=== PATIENT | female | born 1955 | race Caucasian/White ===

== ENCOUNTER → 2022-11-13 08:58 | Outpatient (BNVA) | payer MEDICARE, SELFPAY | PROVIDERS: Visit Provider Nurse Practitioner | DX: R39.9 Unspecified symptoms and signs involving the genitourinary system (principal); N39.0 Urinary tract infection, site not specified | CPT/HCPCS: 81000; 87086 ==

== ENCOUNTER → 2023-07-23 07:13 | Outpatient (BNVA) | payer MEDICARE, SELFPAY | PROVIDERS: Visit Provider Nurse Practitioner Family | DX: R30.0 Dysuria (principal); R10.30 Lower abdominal pain, unspecified | CPT/HCPCS: 81000 ==

== ENCOUNTER → 2024-12-14 09:45 | Outpatient (BNVA) | payer MEDICARE, OTHER, SELFPAY | PROVIDERS: Visit Provider Family Medicine | DX: E55.9 Vitamin D deficiency, unspecified (principal); I10 Essential (primary) hypertension; E78.2 Mixed hyperlipidemia; R10.31 Right lower quadrant pain; R79.89 Other specified abnormal findings of blood chemistry | CPT/HCPCS: 80053; 80061; 82306; 82607; 84443; 85025 ==

== ENCOUNTER 2025-01-31 11:36 | Outpatient (CLI) | payer MEDICARE, OTHER, SELFPAY ==
--- NOTE | 2025-01-31 11:40 | MM_ITS ---
WS: [id number] BILATERAL 3D TOMOSYNTHESIS DIGITAL SCREENING MAMMOGRAPHY WITH CAD CLINICAL INFORMATION: Z12.31 - Encounter for screening mammogram for malignant ... HISTORY: Screening mammogram. No current complaints. COMPARISON: 2023 TECHNIQUE: Bilateral CC and MLO views. FINDINGS: The breasts are composed of heterogeneous fibroglandular density tissue, which can limit the detection of small underlying mass lesions. No suspicious mass, asymmetry, calcifications, or architectural distortion. No evidence of malignancy. Punctate lucent centered calcifications. MM/MM [facility] tomosynthesis [id number] IMPRESSION: DENSITY: The breasts are heterogeneously dense, which may obscure small masses. BI-RADS: 2 - Benign FOLLOW UP: 1 Year Follow-up Recommend return to annual screening mammography.
== END 2025-01-31 11:37 | disposition home or self-care (01) ==
LOC: RAD 11:38
PROVIDERS: PCP Family Medicine; Visit Provider Family Medicine
DX: Z12.31 Encounter for screening mammogram for malignant neoplasm of breast (principal); R92.323 Mammographic fibroglandular density, bilateral breasts; R92.333 Mammographic heterogeneous density, bilateral breasts; R92.1 Mammographic calcification found on diagnostic imaging of breast
CPT/HCPCS: 77063; 77067

== ENCOUNTER 2025-02-04 11:16 | Emergency (ER) | payer MEDICARE, SELFPAY ==
--- OUTSIDE RECORDS SUMMARY | 2023-11-06 03:00 | XMS_ITS ---
Author Organization [facility] Address [address] [place] [address] Care Team Providers Care Swing Manager Name Role Phone ABBEY RANCHO Primary Care Provider Allergies Allergen (clinical drug ingredient) Drug/Non Drug Allergy documented on EMR Reaction Allergy Type Onset Date Status Substance with sulfonamide structure and antibacterial mechanism of action (substance) Sulfa Antibiotics Unknown Drug Allergy Active Results Component Value Reference Range Notes Urinalysis Reviewed date:11/06/2023 10:54:43 AM Interpretation:Negative Performing Lab: Notes/Report: Negative Leukocytes neg Color yel Clarity clear Glucose/UA neg Bilirubin, UA neg Ketone, UA neg Specific Spring, UA 1.015 PH, UA 7.0 Protein, UA neg Urobilinogen neg Blood, UA neg Nitrite neg REASON FOR VISIT Establish Care, 68-year-old white female last of note the patient Gerardo Stone comes in today as atotally new patient to me and to the clinic and to establish care. Patient with history of essential hypertension and hyperlipidemia with symptoms of GERD and history of IBS cramping. Medications Medication SIG (Take, Route, Frequency, Duration) Notes Start Date End Date Status hydroCHLOROthiazide 25 MG 1 tablet in th e morning Orally Once a day Active Librax 5-2.5 MG 1 capsule before meals Orally three times a day As needed Active Fenofibrate 160 MG 1 tablet Orally Once a day Active Metoprolol Succinate 25 MG 1 capsule Ora lly Once a day Active Repatha 140 MG/ML 1 mL Subcutaneous on ce a month Active Social History Sex Assigned At : Social History Observation Description Sex Assigned At Female Section Notes: , non smoker, no alco hol use Problems Problem Type SNOMED Code ICD Code Onset Dates Problem Status W/U Status Risk Notes Problem Hyperlipidaemia (81411990) Hyperlipemia (E78.5) Active confirmed Vital Signs Temperature 97.6 degrees Fahrenheit 11/06/19 24 Heart Rate 76 /min 11/06/2023 Blood pressure systolic 148 mm Hg 11/06/19 24 Blood pressure diastolic 69 mm Hg 024 Height 62 in 11/06/2023 Weight 130 lbs 11/06/2023 BMI 23.77 kg/m2 11/06/2023 Respiratory Rate 18 /min 11/06/2023 Oximetry 100 % 11/06/2023 Encounters Encounter Location Date Provider Diagnosis [facility] [address] [place] [id number] 11/06/2023 RANCHO POTTER Thyroid disorder screening Z13.29 ; Hypertension I10 ; Hyperlipemia E78.5 ; Annual visit for general adult medical examination with abnormal findings Z00.01 and Frequency of urination R35.0 Assessments Encounter Date Diagnosis (ICD Code) Assessment Notes Treatment Notes Treatment Clinical Notes Section Notes 11/06/2023 Thyroid disorder screening (ICD-10 - Z13.29) 1 GERD treated 2 IBS with lower abdominal cramping treated 3 essential hypertension treated 4 hyperlipidemia treated with Repatha and substituting ezetimibe for fenofibrate. 11/06/2023 Hypertension (ICD-10 - I10) 1 GERD treated 2 IBS with lower abdominal cramping treated 3 essential hypertension treated 4 hyperlipidemia treated with Repatha and substituting ezetimibe for fenofibrate. 11/06/2023 Hyperlipemia (ICD-10 - E78.5) 1 GERD treated 2 IBS with lower abdominal cramping treated 3 essential hypertension treated 4 hyperlipidemia treated with Repatha and substituting ezetimibe for fenofibrate. 11/06/2023 Annual visit for general adult medical examination with abnormal findings (ICD-10 - Z00.01) 1 GERD treated 2 IBS with lower abdominal cramping treated 3 essential hypertension treated 4 hyperlipidemia treated with Repatha and substituting ezetimibe for fenofibrate. 11/06/2023 Frequency of urination (ICD-10 - R35.0) 1 GERD treated 2 IBS with lower abdominal cramping treated 3 essential hypertension treated 4 hyperlipidemia treated with Repatha and substituting ezetimibe for fenofibrate. 11/06/2023 Other First we will change the metoprolol to 25 mg succinate rather than the tartrate. Will also substitute the ezetimibe 10 mg for the fenofibrate which she admits is done liver the lower her triglycerides.. Patient to continue the Repatha on an 40 mg subcu injection monthly doing well. Patient to do the Librax before meals and at bedtime as needed for cramping in the lower abdominal area from her IBS ended get him probiotics and if stools soft or diarrhea to get on fiber if constipated no fiber just increasing water intake and stool softeners. Labs drawn as follows: CBC, CMP, lipid panel, TSH with free T4 and UA. Patient is very understanding cooperative appreciative and agreeable to all of the above. Follow-up appointment: 2 weeks to review labs drawn today. Patient is very appreciative and agreeable. 1 GERD treated 2 IBS with lower abdominal cramping treated 3 essential hypertension treated 4 hyperlipidemia treated with Repatha and substituting ezetimibe for fenofibrate. Plan Of Treatment Treatment Notes Assessment Notes Other First we will change the metoprolol to 25 mg succinate rather than the tartrate. Will also substitute the ezetimibe 10 mg for the fenofibrate which she admits is done liver the lower her triglycerides.. Patient to continue the Repatha on an 40 mg subcu injection monthly doing well. Patient to do the Librax before meals and at bedtime as needed for cramping in the lower abdominal area from her IBS ended get him probiotics and if stools soft or diarrhea to get on fiber if constipated no fiber just increasing water intake and stool softeners. Labs drawn as follows: CBC, CMP, lipid panel, TSH with free T4 and UA. Patient is very understanding cooperative appreciative and agreeable to all of the above. Follow-up appointment: 2 weeks to review labs drawn today. Patient is very appreciative and agreeable. Pending Test Test Name Order Date CBC With Differential/Platelet Vitamin D, 25-Hydroxy 11/06/2023 Lipid Panel 11/06/2023 cmp 11/06/2023 Glomerular filtration rate 11/06/2023 TSH and Free T4 11/06/2023 Next Appt Details Provider Name:RANCHO POTTER, 02/14/2025 10:15:00 AM, [address], [place], [address], Provider Name:RANCHO POTTER, 03/01/2025 09:00:00 AM, [address] [place], [address], Procedure Notes * Category Sub-Category Detail Notes Venipuncture Venipuncture: verbal consent o btained, 23 g butterfly, number of attempts: 1, Left AC, patient tolerated procedure well, [facility] 11/06/2023 10:51:16 AM > Progress Notes * SANTIAGO STONE MDOB: (69 yo F)Acc No.[id number]:11/06/2023 Progress Notes Patient: Lolly GONZALEZSANTIAGO Viki Appointment Provider: Omari POTTER MD :[id number] A ge:68 Y S ex:Female Date:11/06/2023 Address:[address] [place] [address], [id number] Subjective: * Chief Complaints: * 1 . Establish Care. 2. 68-year-old white female last of note the patient Gerardo Stone comes in today as a totally new patient to me and to the clinic and to establish care. Patient with history of essential hypertension and hyperlipidemia with symptoms of GERD and history of IBS cramping.. * HPI: D iabetes mellitus: The above-mentioned patient comes in again as stated above to establish care as a new patient with a totally new doctor and new clinic. Patient with hypercholesterolemia on Repatha 140 mg injection monthly because of inability to take statins. Patient is also been on fenofibrate for the triglycerides as she states it very little success in controlling or normalizing the triglycerides. Patient also on metoprolol to tartrate 25 which would definitely be changed to a succinate. Also taken the hydrochlorothiazide 25 every morning as well and Librax 3 times a day as needed for lower abdominal cramping from her IBS. . * ROS: A dult ROS: Skin N o a bnormalities s he i s a cooley?of E d a ny s ignificance.. G astrointestinal A gain t reated a nd?symptomatic f rom t he a severiano-mentioned G ERD a nd I BS w ith m ostly l ower a bdominal c ramping i s s ymptom a nd o ccasional d iarrhea a nd c onstipation i ntermittently.. P ediatric ROS: HEENT N ormal.. A llergy/Immunology: Denies C ongestion. D enies C ough. ? R espiratory: Denies C hest pain. C ardiovascular: Denies S hortness of breath. G enerally:Presently no complaints whatsoever but again does have the main symptomatic complaint of GERD and IBS cramping if not treated. Cardiopulmonary:Negative. No chest pain palpitation shortness of breath wheeze congestion or cough. Musculoskeletal/extremities:All met. No complaint no problems. Psych:Mentation cognition and memory all good. Patient is understanding and cooperative. * Medical History: H yperlipemia, Hypertension. * Surgical History: h ysterectomy , bilateral salpingo-oophorerectomy . * Hospitalization/Major Diagno stic Procedure: s [place] [facility] , chilbirth x 2 . * Family History: 3 brother(s) , 6 sister(s) . 1 son(s) , 1 daughter(s) . . family hx DM,heart disease,. * Social History: m arried, non smoker, no alcohol use. * Medications: T aking Librax 5-2.5 MG Capsule 1 capsule before meals Orally three times a day As needed, Taking hydroCHLOROthiazide 25 MG Tablet 1 tablet in the morning Orally Once a day , Taking Metoprolol Succinate 25 MG Capsule ER 24 Hour Sprinkle 1 capsule Orally Once a day , Taking Fenofibrate 160 MG Tablet 1 tablet Orally Once a day , Taking Repatha 140 MG/ML Solution Prefilled Syringe 1 mL Subcutaneous once a month , Medication List reviewed and reconciled with the patient * Allergies: S ulfa Antibiotics. Objective: * Vitals: T emp:97.6F, HR:76/min, BP:148/69mm Hg, Ht: 62 in, Wt:130lbs, BMI:23.77Index, RR:18/min, Oxygen sat %:100%. * Examination: S leep Patterns: G enerally:Visibly and verbally all good. Vital signs: Blood pressure pulse good. Respiratory rate and O2 sat good. Temperature afebrile good and weight is good at 130 and BMI of 23. HEENT:Normocephalic facial symmetry is good. No JVD audible bruits or palpable thrills. Cardiac:Regular rate and rhythm no gallop ectopy rub click or significant murmur. Lungs:Clear to auscultation anterior posteriorly. Abdomen:no subxiphoid or epigastric tenderness exam benign. Musculoskeletal/extremities:No significant findings of any abnormalities in the joints bones or muscles. No palpable or visible abnormalities of extremities with no tenderness pain edema swelling or discoloration. Skin:No abnormal findings. Psych:No anxiety significant anxiousness worry concern or depression. Cognitively easily oriented x 5. And memory is good for long and short. Patient is very understanding cooperative appreciative and agreeable to all of the above. Assessment: * Assessment: 1. H ypertension - I10 (Primary) 2 . T hyroid disorder screening - Z13.29? 3. H yperlipemia - E78.5 4 . A nnual visit for general adult medical examination with abnormal findings - Z00.01 5 . F requency of urination - R35.0 1 GERD treated 2 IBS with lower abdominal cramping treated 3 essential hypertension treated 4 hyperlipidemia treated with Repatha and substituting ezetimibe for fenofibrate. Plan: * Treatment: 2. T hyroid disorder screening L AB: TSH and Free T4 3. H yperlipemia L AB: Lipid Panel 4. A nnual visit for general adult medical examination with abnormal findings L AB: Vitamin D, 25-Hydroxy 5. O thers Notes: First we will change the metoprolol to 25 mg succinate rather than the tartrate. Will also substitute the ezetimibe 10 mg for the fenofibrate which she admits is done liver the lower her triglycerides.. Patient to continue the Repatha on an 40 mg subcu injection monthly doing well. Patient to do the Librax before meals and at bedtime as needed for cramping in the lower abdominal area from her IBS ended get him probiotics and if stools soft or diarrhea to get on fiber if constipated no fiber just increasing water intake and stool softeners. Labs drawn as follows: CBC, CMP, lipid panel, TSH with free T4 and UA. Patient is very understanding cooperative appreciative and agreeable to all of the above. Follow-up appointment: 2 weeks to review labs drawn today. Patient is very appreciative and agreeable. * Procedures: V enipuncture: Venipuncture: v erbal consent obtained, 23 g butterfly, number of attempts: 1, Left AC, patient tolerated procedure well, sent to [facility] [place] 11/06/2023 10:51:16 AM > . * Labs: * L ab: Urinalysis (Collection Date & Time - 11/06/2023) N egative Value Reference Range L eukocytes neg * C olor yel * C larity clear * G lucose/UA neg * B ilirubin, UA neg * K etone, UA neg * S pecific Spring, UA 1.015 * P H, UA 7.0 * P rotein, UA neg * U robilinogen neg * B lood, UA neg * N itrite neg * Procedure Codes: 3 6415 VENIPUNCT, ROUTINE*, 42708 URINALYSIS, W/O SCOPE * Billing Information: * Visit Code: 59180 Office Visit, Est Pt., Level 3. * Procedure Codes: 17645 VENIPUNCT, ROUTINE*. 40134 URINALYSIS, W/O SCOPE. * Electronic signature of SORAYA POTTER on 02/04/2025 at 11:23 AM SUPPLY CLERK Sign off status: Pending * Appointment Provider: Omari POTTER MD Date: 0 11/06/2023 Generated for Cortney sidhu/Frank/Placido on: 04/06/2024 11:23 AM SUPPLY CLERK History and Physical Notes * HPI (History of Present Illness) Category Sub-Category Detail Notes Category Not es Diabetes mellitus The above- mentioned patient comes in again as stated above to establish care as a new patient with a totally new doctor and new clinic. Patient with hypercholesterolemia on Repatha 140 mg injection monthly because of inability to take statins. Patient is also been on fenofibrate for the triglycerides as she states it very little success in controlling or normalizing the triglycerides. Patient also on metoprolol to tartrate 25 which would definitely be changed to a succinate. Also taken the hydrochlorothiazide 25 every morning as well and Librax 3 times a day as needed for lower abdominal cramping from her IBS. Examination Category Sub-Category Detail Notes Category Not es Sleep Patterns Generally:Visibly and verbally all good. Vital signs: Blood pressure pulse good. Respiratory rate and O2 sat good. Temperature afebrile good and weight is good at 130 and BMI of 23. HEENT:Normocephalic facial symmetry is good. No JVD audible bruits or palpable thrills. Cardiac:Regular rate and rhythm no gallop ectopy rub click or significant murmur. Lungs:Clear to auscultation anterior posteriorly. Abdomen:no subxiphoid or epigastric tenderness exam benign. Musculoskeletal/extremities:No significant findings of any abnormalities in the joints bones or muscles. No palpable or visible abnormalities of extremities with no tenderness pain edema swelling or discoloration. Skin:No abnormal findings. Psych:No anxiety significant anxiousness worry concern or depression. Cognitively easily oriented x 5. And memory is good for long and short. Patient is very understanding cooperative appreciative and agreeable to all of the above.
--- OUTSIDE RECORDS SUMMARY | 2023-11-14 03:00 | XMS_ITS ---
Author Organization [facility] Address [address] [place] [address] Care Team Providers Care Corn Husker Machine Operator Name Role Phone STEPHAN POTTERLEY Primary Care Provider Allergies Allergen (clinical drug ingredient) Drug/Non Drug Allergy documented on EMR Reaction Allergy Type Onset Date Status Substance with sulfonamide structure and antibacterial mechanism of action (substance) Sulfa Antibiotics Unknown Drug Allergy Active REASON FOR VISIT 2 wk follow up/Lab Results, 68-year-old white female in today to review labs drawn 11/06/2023. Also, to review meds and refills as needed. Patient with essential hypertension hyperlipidemia unable to take statins secondary to adverse effects. Also, patient treated for IBS with both constipation and mostly diarrhea. IBS better with treatment over the last 2 weeks. Medications Medication SIG (Take, Route, Frequency, Duration) Notes Start Date End Date Status Fenofibrate 160 MG 1 tablet Orally Once a day Active Repatha 140 MG/ML 1 mL Subcutaneous on ce a month Active Librax 5-2.5 MG 1 capsule before meals Orally three times a day As needed Active hydroCHLOROthiazide 25 MG 1 tablet in e morning Orally Once a day Active Metoprolol Succinate 25 MG 1 capsule Ora lly Once a day Active Social History Sex Assigned At : Social History Observation Description Sex Assigned At Female Section Notes: , non smoker, no alco hol use Problems Problem Type SNOMED Code ICD Code Onset Dates Problem Status W/U Status Risk Notes Problem Essential hypertension (63274587) Essential (primary) hypertension (I10) Active confirmed Problem Irritable bowel syndrome with diarrhea (784634062) Irritable bowel syndrome with diarrhea (K58.0) Active confirmed Problem Irritable bowel syndrome characterized by constipation (382720522) Irritable bowel syndrome with constipation (K58.1) Active confirmed Vital Signs Temperature 97.6 degrees Fahrenheit 11/14/19 24 Heart Rate 74 /min 11/14/2023 Blood pressure systolic 153 mm Hg 11/14/19 24 Blood pressure diastolic 70 mm Hg 024 Height 62 in 11/14/2023 Weight 130.6 lbs 11/14/2023 BMI 23.88 kg/m2 11/14/2023 Respiratory Rate 18 /min 11/14/2023 Oximetry 96 % 11/14/2023 Encounters Encounter Location Date Provider Diagnosis [address] [id number] 11/14/2023 RANCHO POTTER Essential (primary) hypertension I10 ; Irritable bowel syndrome with diarrhea K58.0 ; Irritable bowel syndrome with constipation K58.1 and Hyperlipemia E78.5 Assessments Encounter Date Diagnosis (ICD Code) Assessment Notes Treatment Notes Treatment Clinical Notes Section Notes 11/14/2023 Essential (primary) hypertension (ICD-10 - I10) 1 essential hypertension treated 2 hyperlipidemia treating 3 IBS with lower abdominal cramping 4 constipation and diarrhea caused by IBS 11/14/2023 Irritable bowel syndrome with diarrhea (ICD-10 - K58.0) 1 essential hypertension treated 2 hyperlipidemia treating 3 IBS with lower abdominal cramping 4 constipation and diarrhea caused by IBS 11/14/2023 Irritable bowel syndrome with constipation (ICD-10 - K58.1) 1 essential hypertension treated 2 hyperlipidemia treating 3 IBS with lower abdominal cramping 4 constipation and diarrhea caused by IBS 11/14/2023 Hyperlipemia (ICD-10 - E78.5) 1 essential hypertension treated 2 hyperlipidemia treating 3 IBS with lower abdominal cramping 4 constipation and diarrhea caused by IBS 11/14/2023 Other Patient getting a monthly shot of Repatha for cholesterol and using fenofibrate daily as well. For IBS continue Librax as needed before meals for lower abdominal cramping along with the probiotics daily and with diarrhea fiber tablets and with constipation stool softeners and MiraLAX. Patient to try 3 months of ezetimibe rather than the fenofibrate to see which 1 will help the most. Patient is very understanding cooperative appreciative and agreeable to all the above. Patient also to take the metoprolol succinate 25 daily along with the HCTZ 25. Follow-up appointment: 3 months with recheck of labs to evaluate ezetimibe versus fenofibrate the best effect along with the Repatha. Patient again appreciates and agrees. Patient accused HCTZ once a day on Fridays only. 1 essential hypertension treated 2 hyperlipidemia treating 3 IBS with lower abdominal cramping 4 constipation and diarrhea caused by IBS Plan Of Treatment Treatment Notes Assessment Notes Other Patient getting a monthly shot of Repatha for cholesterol and using fenofibrate daily as well. For IBS continue Librax as needed before meals for lower abdominal cramping along with the probiotics daily and with diarrhea fiber tablets and with constipation stool softeners and MiraLAX. Patient to try 3 months of ezetimibe rather than the fenofibrate to see which 1 will help the most. Patient is very understanding cooperative appreciative and agreeable to all the above. Patient also to take the metoprolol succinate 25 daily along with the HCTZ 25. Follow-up appointment: 3 months with recheck of labs to evaluate ezetimibe versus fenofibrate the best effect along with the Repatha. Patient again appreciates and agrees. Patient accused HCTZ once a day on Fridays only. Next Appt Details Follow Up: 3 Months, Reason: Provider Name:RANCHO POTTER, 02/14/2025 10:15:00 AM, [address] [place], [address], Provider Name:RANCHO POTTER, 03/01/2025 09:00:00 AM, [address] [place], [address], Progress Notes * SANTIAGO STONE MDOB: (69 yo F)Acc No.[id number]:11/14/2023 Progress Notes Patient: SANTIAGO DOMINGUEZ Appointment Provider: Omari POTTER MD :1955 A ge:68 Y S ex:Female Date:11/14/2023 Address:[address] [place], [place] [id number] Subjective: * Chief Complaints: * 1 . 2 wk follow up/Lab Results. 2. 68-year-old white female in today to review labs drawn 11/06/2023. Also, to review meds and refills as needed. Patient with essential hypertension hyperlipidemia unable to take statins secondary to adverse effects. Also, patient treated for IBS with both constipation and mostly diarrhea. IBS better with treatment over the last 2 weeks.. * HPI: D iabetes mellitus: The above-mentioned patient reviewing labs as follows:CMP was all normal except for some minimally elevated calcium levels. Thyroid with TSH and free T4 normal. Lipid panel showed good total at 169 LDL at 88 HDL low at 37 triglyceride 236. CBC showed WBC hematocrit and platelet count good with platelet count minimally elevated and will recheck CBC in 3 to 4 months should be fine. Patient having a little bit of dependent edema because stopped her diuretic because of slight decrease in GFR bleeding hydrational and sure enough of the diuretic GFR up to 63. . * ROS: A dult ROS: Skin N ormal.. G astrointestinal I BS m uch?improved w ith L ibrax b efore m eals 3 t imes d aily a nd w ith d iarrhea f iber t ablets a long w ith t he p robiotics.. M usculoskeletal N egative. K R: ROS: Denies C hest Pain. L sachi: Cardiac N ormal. No c hest p ain p alpitation s hortness o f b reath e tc.. P ediatric ROS: HEENT N ormal.. A llergy/Immunology: Denies C ongestion. D enies C ough. ? C ardiovascular: Denies S hortness of breath. G enerally:Normal. Vital signs:Good. Pulmonary normal. No shortness of breath wheeze congestion or cough. Extremities:Dependent edema. Psych:Mentation cognition memory all good. Cognitively easily oriented x 5. And memory is good long and short. Patient understanding cooperative. * Medical History: H yperlipemia, Hypertension. [...] ulfa Antibiotics. Objective: * Vitals: T emp:97.6F, HR:74/min, BP:153/70mm Hg, Ht: 62 in, Wt:130.6lbs, BMI:23.88Index, RR:18/min, Oxygen sat %:96%. Past Vitals:* 11/06/2023 HR:76/min, BP:148/69mm Hg, W t:130lbs, BMI:23.77Index, RR:18/min, Oxygen sat %:100% * Examination: S leeion Patterns: G enerally:Normal. Vital signs: Blood pressure 153/70 with pulse 74. Respiratory rate 18 nonlabored with O2 sat room air 96%. And temperature 97.6. HEENT:Normocephalic facial symmetry is good cranial nerves grossly intact. No JVD audible bruits or palpable thrills over carotids bilaterally. Cardiac:Regular rate and rhythm no gallop ectopy rub click or significant murmur. Lungs:Clear to auscultation anterior posteriorly. Abdomen:Omit. No problems no complaints IBS being treated doing very well. Musculoskeletal/extremities:Normal joints bones and muscles. No palpable or visible abnormalities on extremities no tenderness no pain no edema swelling or discoloration. Skin:Normal. Psych:Mentation cognition memory all good. Cognitively easily oriented x 5 memory good long and short no anxiety no depression noted. Patient is understanding cooperative appreciative and agreeable to all the above. Assessment: * Assessment: 1. I rritable bowel syndrome with diarrhea - K58.0 2 . E ssential (primary) hypertension - I10 (Primary) 3 . I rritable bowel syndrome with constipation - K58.1 4 . H yperlipemia - E78.5 1 essential hypertension walt ated 2 hyperlipidemia treating 3 IBS with lower abdominal cramping 4 constipation and diarrhea caused by IBS. Plan: * Treatment: * Follow Up: 3 Months * Billing Information: * Visit Code: 83204 Office Visit, Est Pt., Level 3. * Procedure Codes: * Electronic signature of SORAYA POTTER on 02/04/2025 at 11:22 AM GLOBAL SUPPLY CHAIN DIRECTOR Sign off status: Pending * Appointment Provider: Omari POTTER MD Date: 0 11/14/2023 Generated for Cortney sidhu/Frank/Placido on: 1 04/06/2024 11:22 AM GLOBAL SUPPLY CHAIN DIRECTOR History and Physical Notes * HPI (History of Present Illness) Category Sub-Category Detail Notes Category Not es Diabetes mellitus The above- mentioned patient reviewing labs as follows:CMP was all normal except for some minimally elevated calcium levels. Thyroid with TSH and free T4 normal. Lipid panel showed good total at 169 LDL at 88 HDL low at 37 triglyceride 236. CBC showed WBC hematocrit and platelet count good with platelet count minimally elevated and will recheck CBC in 3 to 4 months should be fine. Patient having a little bit of dependent edema because stopped her diuretic because of slight decrease in GFR bleeding hydrational and sure enough of the diuretic GFR up to 63. Examination Category Sub-Category Detail Notes Category Not es Sleep Patterns Generally:Normal. Vital signs: Blood pressure 153/70 with pulse 74. Respiratory rate 18 nonlabored with O2 sat room air 96%. And temperature 97.6. HEENT:Normocephalic facial symmetry is good cranial nerves grossly intact. No JVD audible bruits or palpable thrills over carotids bilaterally. Cardiac:Regular rate and rhythm no gallop ectopy rub click or significant murmur. Lungs:Clear to auscultation anterior posteriorly. Abdomen:Omit. No problems no complaints IBS being treated doing very well. Musculoskeletal/extremities:Normal joints bones and muscles. No palpable or visible abnormalities on extremities no tenderness no pain no edema swelling or discoloration. Skin:Normal. Psych:Mentation cognition memory all good. Cognitively easily oriented x 5 memory good long and short no anxiety no depression noted. Patient is understanding cooperative appreciative and agreeable to all the above.
--- OUTSIDE RECORDS SUMMARY | 2024-01-05 05:00 | XMS_ITS ---
Author Organization [facility] Address [address] [place] [address] Care Team Providers Care On Air Personality Name Role Phone RANCHO POTTER Primary Care Provider Allergies Allergen (clinical drug ingredient) Drug/Non Drug Allergy documented on EMR Reaction Allergy Type Onset Date Status Substance with sulfonamide structure and antibacterial mechanism of action (substance) Sulfa Antibiotics Unknown Drug Allergy Active REASON FOR VISIT Complains of sinus drainage, bilateral ear pain, RLQ/LLQ pain and fatigue, Patient also requests guillermo set up for a screening mammogram and cologuard Medications Medication SIG (Take, Route, Frequency, Duration) Notes Start Date End Date Status Cetirizine HCl 10 MG 1 tablet Orally Onc e a day; Duration: 30 days 01/05/2024 Active Montelukast Sodium 10 MG 1 tablet Orally Once a day; Duration: 30 days 01/05/2024 Active Astepro 205.5 MCG/SPRAY 2 sprays in each nostril Nasally three times a day; Duration: 30 days 01/05/2024 Active Repatha 140 MG/ML 1 mL Subcutaneous once a month Active Zithromax Z-Noah 250 MG 2 tablets on the first day, then 1 tablet daily for 4 days Orally Once a day; Duration: 5 days 01/05/2024 01/15/2024 Active Fenofibrate 160 MG 1 tablet Orally Once a day Active Metoprolol Succinate 25 MG 1 capsule Ora lly Once a day Active hydroCHLOROthiazide 25 MG 1 tablet in th e morning Orally Once a day Active Fluticasone Furoate 27.5 MCG/SPRAY (1 spray in each nostril) Nasally three times a day; Duration: 30 days 01/05/2024 Active Librax 5-2.5 MG 1 capsule before meals Orally three times a day As needed Active Social History Sex Assigned At : Social History Observation Description Sex Assigned At Female Section Notes: , non smoker, no alco hol use Problems Problem Type SNOMED Code ICD Code Onset Dates Problem Status W/U Status Risk Notes Problem Sinusitis (17122014) Sinusitis (J32.9) Active confirmed seasonal/ allergic Vital Signs Temperature 98.1 degrees Fahrenheit 01/05/20 24 Heart Rate 83 /min 01/05/2024 Blood pressure systolic 124 mm Hg 01/05/20 24 Blood pressure diastolic 74 mm Hg 024 Height 62 in 01/05/2024 Weight 129 lbs 01/05/2024 BMI 23.59 kg/m2 01/05/2024 Respiratory Rate 16 /min 01/05/2024 Oximetry 99 % 01/05/2024 Encounters Encounter Location Date Provider Diagnosis [facility] [address] [place] [id number] 01/05/2024 RANCHO POTTER Sinusitis J32.9 ; Screening mammogram for breast cancer Z12.31 ; Colon cancer screening Z12.11 and Abdominal discomfort R10.9 Assessments Encounter Date Diagnosis (ICD Code) Assessment Notes Treatment Notes Treatment Clinical Notes Section Notes 01/05/2024 Sinusitis (ICD-10 - J32.9) started patient on Zpack with 1 refill started flonase and astepro started ceterizine and singular IM 40 mg depomedrol given in office 01/05/2024 Screening mammogram for breast cancer (ICD-10 - Z12.31) sending order for mammogram pt will be notified with appt date and time 01/05/2024 Colon cancer screening (ICD-10 - Z12.11) Juan signed and filled at and faxed to company pt will receive in the mail this information once completed 01/05/2024 Abdominal discomfort (ICD-10 - R10.9) Plan Of Treatment Medication Medication Name Sig Start Date Stop Date Notes Cetirizine HCl 10 MG 1 tablet Orally Onc e a day; Duration: 30 days 01/05/2024 Montelukast Sodium 10 MG 1 tablet Orally Once a day; Duration: 30 days 01/05/2024 Astepro 205.5 MCG/SPRAY 2 sprays in each nostril Nasally three times a day; Duration: 30 days 01/05/2024 Zithromax Z-Noah 250 MG 2 tablets on the first day, then 1 tablet daily for 4 days Orally Once a day; Duration: 5 days 01/05/2024 01/15/2024 Fluticasone Furoate 27.5 MCG/SPRAY (1 spray in each nostril) Nasally three times a day; Duration: 30 days 01/05/2024 Treatment Notes Assessment Notes Sinusitis started patient on Zpack with 1 refill started flonase and astepro started ceterizine and singular IM 40 mg depomedrol given in office Screening mammogram for breast cancer sending order for mammogram pt will be notified with appt date and time Colon cancer screening Cologuard signed and filled at and faxed to company pt will receive in the mail this information once completed Next Appt Details Follow Up: 4 Weeks, Reason: Provider Name:RANCHO POTTER, 02/14/2025 10:15:00 AM, [address] [place], [address], Provider Name:RANCHO POTTER, 03/01/2025 09:00:00 AM, [address] [place], [address], Medications Administered Medication Instructions Date of Administration Dosage Notes DEPO-Medrol 01/05/2024 40 mg Progress Notes * SANTIAGO STONE MDOB: (69 yo F)Acc No.[id number]:01/05/2024 Progress Notes Patient: SANTIAGO DOMINGUEZ Appointment Provider: Omari POTTER MD :1955 A ge:68 Y S ex:Female Date:01/05/2024 Address:[address] [place], [place] [id number] Subjective: * Chief Complaints: * 1 . Complains of sinus drainage, bilateral ear pain, RLQ/LLQ pain and fatigue. 2. Patient also requests to be set up for a screening mammogram and cologuard. * HPI: H PI: Patient is 68 years old female here to RLQ/LLQ stomach pain that has been going on for past four or five months. Patient denies any prior issues with her stomach before. Patient states it feels like maybe her bladder has dropped due to she has trouble emptying her bladder. Patient has been having sinus drainage and ear pain for a few days. Patient is also wanting screening mammogram set up and Cologuard to be sent to her home. Patient has been having coughing and congestion and ear pain to both ears for a few days. Patient reports green drainage. patient denies any fever. patient is also needing routine mammogram set up and cologuard. * ROS: A dult ROS: General a dmits, F atigue, Denies fever and chills.?Head d enies, H eadache. E yes d enies, B lurry or Double Vision. E ars?admits, E arache. N ose a dmits, S inus Drainage. T hroat d enies, S ore Throat. R espiratory d enies, S hortness of breath. C ardiovascular d enies,?Chest pain or discomfort. G astrointestinal a dmits, A dmits abdominal pain. Denies change in bowel habits, Heartburn, Rectal bleeding, Diarrhea, Vomiting. U rinary d enies, B urning or Pain. M usculoskeletal d enies, M uscle or joint pain. P sychiatric d enies, S tress, Depression. S kin d enies, R ashes. * Medical History: H yperlipemia, Hypertension. * [...] Syringe 1 mL Subcutaneous once a month * Allergies: S ulfa Antibiotics. Objective: * Vitals: T emp:98.1F, HR:83/min, BP:124/74mm Hg, Ht: 62 in, Wt:129lbs, BMI:23.59Index, RR:16/min, Oxygen sat %:99%. Past Vitals:* 11/14/2023 HR:74/min, BP:153/70mm Hg, W t:130.6lbs, BMI:23.88Index, RR:18/min, Oxygen sat %:96% * 11/06/2023 HR:76/min, BP:148/69mm Hg, W t:130lbs, BMI:23.77Index, RR:18/min, Oxygen sat %:100% * Examination: S fredrick Patterns: V itals: Temp: 9 8.1 F , HR: 8 3 / min, BP: 1 24/74 m m Hg, Ht: 62 in, Wt: 1 29 l bs, BMI: 2 3.59 I ndex, RR: 1 6 / min, Oxygen sat %: 9 9 % . General Appearance: Well developed, well nourished, alert and cooperative, and appears to be in no acute distress HEENT: Normocephalic. Facial symmetry. intact. Cranial nerves grossly intact. No JVD audible bruits or palpable thrills over carotids bilaterally. No adenopathy palpitated in neck or super clavicular areas. Cardiac:Regular rate and rhythm. No gallop, rub, click or significant murmur Lungs:Clear to auscultation anterior posteriorly. Abdomen:omit.no problems no complaints Musculoskeletal:No findings of abnormalities of joints muscles or bones. Extremities:No visible or palpable abnormalities in the upper or lower extremities.no tenderness ,pain, edema ,swelling, discoloration or change in temperature. Skin: Warm,Well perfused. No rashes or lesions noted .no bruising or petechia or significant discoloration. Psych: Mentation, cogitation and memory all good .No anxiousness, no depression or anxiety at this time. Psych:There is no hint of anxiety anxiousness worry concern or depression. Cognitively easily oriented to person place time date and situation. Memory is good long and short-term. Patient is very understanding cooperative appreciative and agreeable to all the above. Assessment: * Assessment: 1. S inusitis - J32.9 (Primary) 2 . S creening mammogram for breast cancer - Z12.31 3 . C olon cancer screening - Z12.11 4 . A bdominal discomfort - R10.9 Plan: * Treatment: 2. S creening mammogram for breast cancer I maging: Mammogram Screening (Order Cancelled) Notes: sending order for mammogram pt will be notified with appt date and time 3. C olon cancer screening Notes: Juan signed and filled at and faxed to company pt will receive in the mail this information once completed 4. O thers Start Astepro Solution, 205.5 MCG/SPRAY, 2 sprays in each nostril, Nasally, three times a day, 30 days, 1 ea, Refills 0; S tart Montelukast Sodium Tablet, 10 MG, 1 tablet, Orally, Once a day, 30 days, 30, Refills 0; S tart Cetirizine HCl Tablet, 10 MG, 1 tablet, Orally, Once a day, 30 days, 30, Refills 1; S tart Fluticasone Furoate Suspension, 27.5 MCG/SPRAY, (1 spray in each nostril), Nasally, three times a day, 30 days; S tart Zithromax Z-Noah Tablet, 250 MG, 2 tablets on the first day, then 1 tablet daily for 4 days, Orally, Once a day, 5 days, 6, Refills 1. * Therapeutic Injections: Depo Medrol 40 mg : 40 mg (Dose No:1) (Route: Intramuscular) given by YOSELYN SNOWDEN on right buttock * Procedure Codes: J 1030 Depo Medrol 40 MG, Units: 40.00 * Follow Up: 4 Weeks * Billing Information: * Visit Code: 79435 Office Visit, Est Pt., Level 3. * Procedure Codes: J1030 Depo Medrol 40 MG. Units: 40.00. * Electronic signature of SORAYA POTTER on 02/04/2025 at 11:22 AM AIR CREW SUPERVISOR Sign off status: Pending * Appointment Provider: Omari POTTER MD Date: Generated for Cortney sidhu/Frank/eTcolettesmitting on: 1 04/06/2024 11:22 AM AIR CREW SUPERVISOR History and Physical Notes * Examination Category Sub-Category Detail Notes Category Not es Sleep Patterns Vitals: Temp: 98.1 F, HR: 83 /min, BP: 124/74 mm Hg, Ht: 62 in, Wt: 129 lbs, BMI: 23.59 Index, RR: 16 /min, Oxygen sat %: 99 %. General Appearance: Well developed, well nourished, alert and cooperative, and appears to be in no acute distress HEENT: Normocephalic. Facial symmetry. intact. Cranial nerves grossly intact. No JVD audible bruits or palpable thrills over carotids bilaterally. No adenopathy palpitated in neck or super clavicular areas. Cardiac:Regular rate and rhythm. No gallop, rub, click or significant murmur Lungs:Clear to auscultation anterior posteriorly. Abdomen:omit.no problems no complaints Musculoskeletal:No findings of abnormalities of joints muscles or bones. Extremities:No visible or palpable abnormalities in the upper or lower extremities.no tenderness ,pain, edema ,swelling, discoloration or change in temperature. Skin: Warm,Well perfused. No rashes or lesions noted .no bruising or petechia or significant discoloration. Psych: Mentation, cogitation and memory all good .No anxiousness, no depression or anxiety at this time. Psych:There is no hint of anxiety anxiousness worry concern or depression. Cognitively easily oriented to person place time date and situation. Memory is good long and short-term. Patient is very understanding cooperative appreciative and agreeable to all the above.
--- OUTSIDE RECORDS SUMMARY | 2024-02-16 08:45 | XMS_ITS ---
Author Organization [facility] Address [address] [place] [address] Care Team Providers Care Returned Materials Inspector Name Role Phone RANCHO POTTER Primary Care Provider Allergies Allergen (clinical drug ingredient) Drug/Non Drug Allergy documented on EMR Reaction Allergy Type Onset Date Status Substance with sulfonamide structure and antibacterial mechanism of action (substance) Sulfa Antibiotics Unknown Drug Allergy Active REASON FOR VISIT patient is here today for three month check up and to follow up on medications., patient is also needing routine labs done today. Medications Medication SIG (Take, Route, Frequency, Duration) Notes Start Date End Date Status Cetirizine HCl 10 MG 1 tablet Orally Onc e a day; Duration: 30 days 01/05/2024 Active Fluticasone Furoate 27.5 MCG/SPRAY (1 spray in each nostril) Nasally three times a day; Duration: 30 days 01/05/2024 Active Repatha 140 MG/ML 1 mL Subcutaneous on ce a month Active Astepro 205.5 MCG/SPRAY 2 sprays in each nostril Nasally three times a day; Duration: 30 days 01/05/2024 Active Montelukast Sodium 10 MG 1 tablet Orally Once a day; Duration: 30 days 01/05/2024 Active Metoprolol Succinate 25 MG 1 capsule Ora lly Once a day Active Fenofibrate 160 MG 1 tablet Orally Once a day Active Librax 5-2.5 MG 1 capsule before meals Orally three times a day As needed Active hydroCHLOROthiazide 25 MG 1 tablet in th e morning Orally Once a day Active Social History Sex Assigned At : Social History Observation Description Sex Assigned At Female Section Notes: , non smoker, no alco hol use Problems Problem Type SNOMED Code ICD Code Onset Dates Problem Status W/U Status Risk Notes Problem Irritable bowel syndrome (60490400) Other irritable bowel syndrome (K58.8) Active confirmed Vital Signs Temperature 97.4 degrees Fahrenheit 02/16/20 24 Heart Rate 84 /min 02/16/2024 Blood pressure systolic 162 mm Hg 02/16/20 24 Blood pressure diastolic 66 mm Hg 024 Height 62 in 02/16/2024 Weight 128 lbs 02/16/2024 BMI 23.41 kg/m2 02/16/2024 Respiratory Rate 18 /min 02/16/2024 Oximetry 97 % 02/16/2024 Encounters Encounter Location Date Provider Diagnosis [facility] [address] [place] [id number] 02/16/2024 RANCHO POTTER Hypertension I10 ; Hyperlipemia E78.5 ; Other irritable bowel syndrome K58.8 ; Sinusitis J32.9 and Irritable bowel syndrome with constipation K58.1 Assessments Encounter Date Diagnosis (ICD Code) Assessment Notes Treatment Notes Treatment Clinical Notes Section Notes 02/16/2024 Hypertension (ICD-10 - I10) Labs drawn in office today no medication changes made today as of now Patient is to RTC in 2 weeks to go over lab results from labs drawn today. Patient agrees with treatment plan 02/16/2024 Hyperlipemia (ICD-10 - E78.5) 02/16/2024 Other irritable bowel syndrome (ICD-10 - K58.8) 02/16/2024 Sinusitis (ICD-10 - J32.9) seasonal/allerg ic 02/16/2024 Irritable bowel syndrome with constipation (ICD-10 - K58.1) Plan Of Treatment Treatment Notes Assessment Notes Hypertension Labs drawn in office today no medication changes made today as of now Patient is to RTC in 2 weeks to go over lab results from labs drawn today. Patient agrees with treatment plan Next Appt Details Follow Up: 2 Weeks, Reason: Provider Name:RANCHO POTTER, 02/14/2025 10:15:00 AM, [address] [place], [address], Provider Name:RANCHO POTTER, 03/01/2025 09:00:00 AM, [address] [place], [address], Procedure Notes * Category Sub-Category Detail Notes Venipuncture Venipuncture: verbal consent o btained, number of attempts: 1, Left AC, patient tolerated procedure well, sent to [facility], YOSELYN SNOWDEN 02/16/2024 02:58:22 PM > Progress Notes * SANTIAGO STONE MDOB: (69 yo F)Acc No.[id number]:02/16/2024 Progress Notes Patient: SANTIAGO DOMINGUEZ Appointment Provider: Omari POTTER MD :1955 A ge:68 Y S ex:Female Date:02/16/2024 Address:[address] [place], [place] [id number] Subjective: * Chief Complaints: * 1 . Patient is here today for three month check up and to follow up on medications.. 2. Patient is also needing routine labs done today.. * HPI: H PI: Patient is 68 years old female here today for routine check up and labs to be done. Patient is tolerating medications well at this time with no concerns. Patient is doing better since last month when she had sinusitis. Patient has no concerns today at this time. * ROS: R adria Of System: Constituational D enies, F atigue, Fever or Chills, Weakness, Weight loss or gain. H ENT D enies, c hanges in vision or hearing.. C ardiovascular D enies, S hortness of breath, chest pain or palpitations. P ulmonary D enies, s hortness of breath, wheeze, congestion or cough.. G I D enies, D enies abdominal pain, nausea, vomiting and diarrhea. G U D enies, D ysuria, Frequency and heamturia.?Skin D enies, a ny rashes or lesions. M usculoskeletal/Extremties D enies, m uscle or joint pain. No complaint of abnormalities of joints muscles and bones.. P SYCH D enies, n o concerns regarding anxiety or depression. no concerns over short and longterm memory..? * Medical History: H yperlipemia, Hypertension. * [...] 1 mL Subcutaneous once a month , Taking Astepro 205.5 MCG/SPRAY Solution 2 sprays in each nostril Nasally three times a day , Taking Montelukast Sodium 10 MG Tablet 1 tablet Orally Once a day , Taking Cetirizine HCl 10 MG Tablet 1 tablet Orally Once a day , Taking Fluticasone Furoate 27.5 MCG/SPRAY Suspension (1 spray in each nostril) Nasally three times a day , Medication List reviewed and reconciled with the patient * Allergies: S ulfa Antibiotics. Objective: * Vitals: T emp:97.4F, HR:84/min, BP:162/66mm Hg, Ht: 62 in, Wt:128lbs, BMI:23.41Index, RR:18/min, Oxygen sat %:97%. Past Vitals:* 01/05/2024 HR:83/min, BP:124/74mm Hg, W t:129lbs, BMI:23.59Index, RR:16/min, Oxygen sat %:99% * 11/14/2023 HR:74/min, BP:153/70mm Hg, W t:130.6lbs, BMI:23.88Index, RR:18/min, Oxygen sat %:96% * 11/06/2023 HR:76/min, BP:148/69mm Hg, W t:130lbs, BMI:23.77Index, RR:18/min, Oxygen sat %:100% * Examination: e xam-normal brief: V ital Signs:Temp: 9 7.4 F , HR: 8 4 / min, BP: 1 62/66 m m Hg, Ht: 62 in, Wt: 1 28 l bs, BMI: 2 3.41 I ndex, RR: 1 8 / min, Oxygen sat %: 9 7 % . General Appearance: Well developed, well nourished, alert and cooperative, and appears to be in no acute distress HEENT: Normocephalic. Facial symmetry. Intact. Cranial nerves grossly intact. No JVD audible bruits or palpable thrills over carotids bilaterally. No adenopathy palpitated in neck or super clavicular areas. Cardiac:Regular rate and rhythm. No gallop, rub, click or significant murmur Lungs:Clear to auscultation anterior posteriorly. Abdomen:omit.no problems no complaints Musculoskeletal/Extremities: No findings of abnormalities of joints muscles or bones.No visible or palpable abnormalities in the upper or lower extremities.no tenderness, pain, edema, swelling, discoloration or change in temperature. Skin: Warm, Well perfused. No rashes or lesions noted .no bruising or petechia or significant discoloration. Psych: Mentation, cogitation and memory all good.No anxiousness, no depression or anxiety at this time. Patient is very understanding cooperative appreciative and agreeable to all the above. Assessment: * Assessment: 1. H yperlipemia - E78.5 2 . H ypertension - I10 (Primary) 3 . O ther irritable bowel syndrome - K58.8 4 . S inusitis - J32.9 ? N otes :seasonal/allergic 5 . I rritable bowel syndrome with constipation - K58.1 Plan: * Treatment: 2. H yperlipemia L AB: Lipid Panel (Order Cancelled) * Procedures: V enipuncture: Venipuncture: v erbal consent obtained, number of attempts: 1, Left AC, patient tolerated procedure well, [facility]/16/[facility]24 02:58:22 PM > . * Procedure Codes: 3 6415 VENIPUNCT, ROUTINE* * Preventive Medicine: Education: P atient education P rovided to patient v erbalized understanding. * Follow Up: 2 Weeks * Billing Information: * Visit Code: 98074 Office Visit, Est Pt., Level 3. * Procedure Codes: 03624 VENIPUNCT, ROUTINE*. * Electronic signature of SORAYA POTTER on 02/04/2025 at 11:22 AM DELIVERY ARCHITECT Sign off status: Pending * Appointment Provider: Omari POTTER MD Date: 04/17/2023 Generated for Alishai thea/Frank/eTransmitting on: 04/06/2024 11:22 AM DELIVERY ARCHITECT History and Physical Notes * Examination Category Sub-Category Detail Notes Category Not es exam-normal brief Vital Signs:Temp: 97.4 F, HR: 84 /min, BP: 162/66 mm Hg, Ht: 62 in, Wt: 128 lbs, BMI: 23.41 Index, RR: 18 /min, Oxygen sat %: 97 %. General Appearance: Well developed, well nourished, alert and cooperative, and appears to be in no acute distress HEENT: Normocephalic. Facial symmetry. Intact. Cranial nerves grossly intact. No JVD audible bruits or palpable thrills over carotids bilaterally. No adenopathy palpitated in neck or super clavicular areas. Cardiac:Regular rate and rhythm. No gallop, rub, click or significant murmur Lungs:Clear to auscultation anterior posteriorly. Abdomen:omit.no problems no complaints Musculoskeletal/Extremities: No findings of abnormalities of joints muscles or bones.No visible or palpable abnormalities in the upper or lower extremities.no tenderness, pain, edema, swelling, discoloration or change in temperature. Skin: Warm, Well perfused. No rashes or lesions noted .no bruising or petechia or significant discoloration. Psych: Mentation, cogitation and memory all good.No anxiousness, no depression or anxiety at this time. Patient is very understanding cooperative appreciative and agreeable to all the above.
--- OUTSIDE RECORDS SUMMARY | 2024-02-23 03:15 | XMS_ITS ---
Author Organization [facility] Address [address] [place] [address] Care Team Providers Care Communications Executive Name Role Phone RANCHO POTTER Primary Care Provider [phone] Allergies Allergen (clinical drug ingredient) Drug/Non Drug Allergy documented on EMR Reaction Allergy Type Onset Date Status Substance with 5-lklejzt-3-methylglutar yl-coenzyme A reductase inhibitor mechanism of action (substance) Statins Unknown Drug Allergy Active Substance with sulfonamide structure and antibacterial mechanism of action (substance) Sulfa Antibiotics Unknown Drug Allergy Active REASON FOR VISIT lab results, medication refills. patient states she was put on zetia but she cannot tolerate statins. Medications Medication SIG (Take, Route, Frequency, Duration) Notes Start Date End Date Status Montelukast Sodium 10 MG 1 tablet Orally Once a day; Duration: 30 days 01/05/2024 Not-Taking Cetirizine HCl 10 MG 1 tablet Orally Onc e a day; Duration: 30 days 01/05/2024 Not-Taking Fluticasone Furoate 27.5 MCG/SPRAY (1 spray in each nostril) Nasally three times a day; Duration: 30 days 01/05/2024 Not-Taking Librax 5-2.5 MG 1 capsule before meals Orally three times a day As needed Active Astepro 205.5 MCG/SPRAY 2 sprays in each nostril Nasally three times a day; Duration: 30 days 01/05/2024 Not-Taking Metoprolol Succinate 25 MG 1 capsule Ora lly Once a day; Duration: 90 days Active hydroCHLOROthiazide 25 MG 1 tablet in th e morning Orally Once a day; Duration: 90 days Active Repatha 140 MG/ML 1 mL Subcutaneous once a month; Duration: 30 days Active Fenofibrate 160 MG 1 tablet Orally Once a day; Duration: 90 days Active Social History Sex Assigned At : Social History Observation Description Sex Assigned At Female Section Notes: , non smoker, no alco hol use Vital Signs Temperature 97.2 degrees Fahrenheit 02/23/20 24 Heart Rate 66 /min 02/23/2024 Blood pressure systolic 123 mm Hg 02/23/20 24 Blood pressure diastolic 69 mm Hg 024 Height 62 in 02/23/2024 Weight 127.2 lbs 02/23/2024 BMI 23.26 kg/m2 02/23/2024 Respiratory Rate 19 /min 02/23/2024 Oximetry 99 % 02/23/2024 Encounters Encounter Location Date Provider Diagnosis [address] [id number] 02/23/2024 RANCHO POTTER Hyperlipemia E78.5 ; Hypertension I10 ; Irritable bowel syndrome with constipation K58.1 and Hyperkalemia E87.5 Assessments Encounter Date Diagnosis (ICD Code) Assessment Notes Treatment Notes Treatment Clinical Notes Section Notes 02/23/2024 Hyperlipemia (ICD-10 - E78.5) Continue all mediations as listed below refilled 90days with a refill patient will come in 1 month for lab draw only for potassium pt will be notified with information once it comes back follow up in office for routine check up 4 months pt agrees with treatment plan 02/23/2024 Hypertension (ICD-10 - I10) 02/23/2024 Irritable bowel syndrome with constipation (ICD-10 - K58.1) 02/23/2024 Hyperkalemia (ICD-10 - E87.5) Plan Of Treatment Medication Medication Name Sig Start Date Stop Date Notes Librax 5-2.5 MG 1 capsule before britany ls Orally three times a day Metoprolol Succinate 25 MG 1 capsule Ora lly Once a day; Duration: 90 days hydroCHLOROthiazide 25 MG 1 tablet in th morning Orally Once a day; Duration: 90 days Repatha 140 MG/ML 1 mL Subcutaneous on a month; Duration: 30 days Fenofibrate 160 MG 1 tablet Orally Once a day; Duration: 90 days Treatment Notes Assessment Notes Hyperlipemia Continue all mediations as listed below refilled 90days with a refill patient will come in 1 month for lab draw only for potassium pt will be notified with information once it comes back follow up in office for routine check up 4 months pt agrees with treatment plan Next Appt Details Follow Up: 4 Months, Reason: Provider Name:RANCHO POTTER, 02/14/2025 10:15:00 AM, [address] [place], [address], Provider Name:RANCHO POTTER, 03/01/2025 09:00:00 AM, [address] [place], [address], Progress Notes * SANTIAGO STONE MDOB: (69 yo F)Acc No.[id number]:02/23/2024 Progress Notes Patient: Lolly GONZALEZ SANTIAGO Viki Appointment Provider: Omari POTTER MD :1955 A ge:68 Y S ex:Female Date:02/23/2024 Address:[address] [place], [place] [id number] Subjective: * Chief Complaints: * 1 . Lab results, medication refills. patient states she was put on zetia but she cannot tolerate statins.. * HPI: H PI: Patient is 68 years old female here today for follow up and to go over lab results. Patient had labs done on 02/16/24. Patient had normal chemistries and electrolyets b ut elevated potassium at 5.4 so discussed with pt about low potassium diet. Patient had normal blood count and platelet count. Patient had normal thyroid levels. Patient cholesterol panel showed total 135, HDL50, LDL63, and triglycerides .132 Patient had normal liver function and kidney function with a GFR of 61. patient is otherwise doing well at this time but pt goes to gastro for her stomach this week which is [facility]. * ROS: R annw Of System: Constituational D enies, F atigue, Fever or Chills, Weakness, Weight loss or gain. H ENT D enies, c hanges in vision or hearing.. C ardiovascular D enies, S hortness of breath, chest pain or palpitations. P ulmonary D enies, s hortness of breath, wheeze, congestion or cough.. G I p t with history of IBS with constipation- seeing gastro this week . G U D enies, D ysuria, Frequency and heamturia. S kin D enies, a ny rashes or lesions. M usculoskeletal/Extremties D enies, m uscle or joint pain. No complaint of abnormalities of joints muscles and bones.. P SYCH D enies, n o concerns regarding anxiety or depression. 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 * Medical History: H yperlipemia, Hypertension. * [...] 1 mL Subcutaneous once a month , Not-Taking Astepro 205.5 MCG/SPRAY Solution 2 sprays in each nostril Nasally three times a day , Not-Taking Montelukast Sodium 10 MG Tablet 1 tablet Orally Once a day , Not-Taking Cetirizine HCl 10 MG Tablet 1 tablet Orally Once a day , Not-Taking Fluticasone Furoate 27.5 MCG/SPRAY Suspension (1 spray in each nostril) Nasally three times a day , Medication List reviewed and reconciled with the patient * Allergies: S ulfa Antibiotics, Statins. Objective: * Vitals: T emp:97.2F, HR:66/min, BP:123/69mm Hg, Ht: 62 in, Wt:127.2lbs, BMI:23.26Index, RR:19/min, Oxygen sat %:99%. Past Vitals:* 02/16/2024 HR:84/min, BP:162/66mm Hg, W t:128lbs, BMI:23.41Index, RR:18/min, Oxygen sat %:97% * 01/05/2024 HR:83/min, BP:124/74mm Hg, W t:129lbs, BMI:23.59Index, RR:16/min, Oxygen sat %:99% * 11/14/2023 HR:74/min, BP:153/70mm Hg, W t:130.6lbs, BMI:23.88Index, RR:18/min, Oxygen sat %:96% * Examination: e xam-normal brief: V ital Signs:Temp: 9 7.2 F , HR: 6 6 / min, BP: 1 23/69 m m Hg, Ht: 62 in, Wt: 1 27.2 l bs, BMI: 2 3.26 I ndex, RR: 1 9 / min, Oxygen sat %: 9 9 [...] * Assessment: 1. H ypertension - I10 2 . H yperlipemia - E78.5 (Primary) 3 . I rritable bowel syndrome with constipation - K58.1 4 . H yperkalemia - E87.5 Plan: * Treatment: 2. H ypertension Continue Metoprolol Succinate Capsule ER 24 Hour Sprinkle, 25 MG, 1 capsule, Orally, Once a day, 90 days, 90 Capsule, Refills 1; C ontinue hydroCHLOROthiazide Tablet, 25 MG, 1 tablet in the morning, Orally, Once a day, 90 days, 90 Tablet, Refills 1. 3. I rritable bowel syndrome with constipation Continue Librax Capsule, 5-2.5 MG, 1 capsule before meals, Orally, three times a day As needed.? 4. H yperkalemia L AB: Potassium, Serum (Order Cancelled) * Preventive Medicine: Education: P atient education P rovided to patient v erbalized understanding. * Follow Up: 4 Months * Billing Information: * Visit Code: 35430 Office Visit, Est Pt., Level 3. * Procedure Codes: * Electronic signature of SORAYA POTTER on 02/04/2025 at 11:23 AM SECONDARY ART TEACHER Sign off status: Pending * Appointment Provider: Omari POTTER MD Date: 04/24/2023 Generated for Cortney sidhu/Frank/Nhiitting on: 04/06/2024 11:23 AM SECONDARY ART TEACHER History and Physical Notes * Examination Category Sub-Category Detail Notes Category Not es exam-normal brief Vital Signs:Temp: 97.2 F, HR: 66 /min, BP: 123/69 mm Hg, Ht: 62 in, Wt: 127.2 lbs, BMI: 23.26 Index, RR: 19 /min, Oxygen sat %: 99 %. General [...]
[2025-02-04 11:22] VITALS: BP 184/73; PULSE 82; RESP 16; TEMP 36.7; O2SAT 95; BMI 22.8
--- OUTSIDE RECORDS SUMMARY | 2025-02-04 11:22 | XMS_ITS | Clinical Summary ---
Author Organization [facility] Address [address] [place] [address] Phone Care Team Providers Care Potato Loader Name Role Phone Pcp, No Primary Care Provider Unavailabl e Allergies Active Allergy Reactions Criticality Noted Date Comments Valsartan Palpitations Low 11/03/2021 Hydrocodone Nausea or Vomiting 11/03/2021 Sulfa (Including Sulfonamide Antibiotics) Rash Low 11/03/2021 Medications REPATHA SURECLICK 140 mg/mL SC pen injector SMARTSIG:ALICIA B-Q 08/15/2021 Active hydroCHLOROthiaz tu (HYDRODIURIL) 25 MG tablet Take one tablet (25 mg total) by mouth one (1) time a day 08/31/2021 Active metoprolol tartrate (LOPRESSOR) 25 MG tablet Take one tablet (25 mg total) by mouth 2 (two) times a day 08/31/2021 Active fenofibrate IDD-P 160 mg Oral tablet Take 160 mg by mouth Active Active Problems No known active problems Encounters Date Type Department Care Team Description 12/28/2024 9:15 AM CDT Ancillary Procedure [facility] [address] [place] [address] 12/28/2024 8:30 AM CDT Office Visit [facility] [address] [facility] [address] [place] [id number] Porsche Corona MD RLQ abdominal pain (Primary Dx) 12/28/2024 Travel from Last 3 Months Immunizations Immunization Administration Dates Next Due Tdap 11/03/2021 Social History Tobacco Use Types Packs/Day Years Used Date Smoking Tobacco: Never Smokeless Tobacco: Never Alcohol Use Standard Drinks/Week Comments Never 0 (1 standard drink = 0.6 oz pur e alcohol) Comments Unknown Sex and Gender Information Value Date Recorded Sex Assigned at Not on file Legal Sex Female 3:27 PM CDT Gender Identity Not on file Sexual Orientation Not on file Last Filed Vital Signs Vital Sign Reading Time Taken Comments Blood Pressure 162/79 12/28/2024 8:41 AM CDT Pulse 73 12/28/2024 8:41 AM CDT Temperature 36.6 C (97.8 F) 12/28/2024 8:41 AM CDT Respiratory Rate 18 12/28/2024 8:41 AM CDT Oxygen Saturation 96% 12/28/2024 8:41 AM CDT Inhaled Oxygen Concentration - - Weight 58.1 kg (128 lb) 01/18/2023 11:31 AM CDT Height 157.5 cm (5' 2 ) 01/18/2023 11:31 AM CDT Body Mass Index 23.41 01/18/2023 11:31 AM CDT Plan of Treatment Health Maintenance Due Date Last Done Comments Colonoscopy Every 6 Months 1954 Colorectal Cancer Screening Annual FOBT/FIT Test 1954 Colorectal Cancer Screening Cologuard 1954 Colorectal Cancer Screening Flex Sigmoidoscopy 1954 Annual Depression Screening 1965 Hepatitis C Antibody Screen 1972 Mammogram 1994 Colorectal CA Screen 10 Year Colonoscopy 10/06/1999 Colorectal Cancer Screening 10/06/1999 Bone Density 10/06/2019 Medicare Subsequent AWV [id number] 09/28/2020 Flu Vaccine (#1) 11/29/2024 01/08/2023, 01/01/2010 Influenza Vaccine 11/29/2024 01/08/2023, 01/01/2010 RSV Immunization Pa tients or 60+ Years (1 - 1-dose 75+ series) 2029 Pneumococcal Vaccine Age 50+ Completed 01/16/2021, 12/28/2019 Procedures Procedure Name Priority Date/Time Associated Diagnosis Comments CT ABDOMEN PELVIS W CONTRAST STAT 12/28/2024 9:30 AM CDT RLQ abdominal pain URINALYSIS DIPSTICK W MICRO IF INDICATED Routine 12/28/2024 9:30 AM CDT RLQ abdominal pain COMPREHENSIVE METABOLIC PANEL Routine 12/28/2024 8:53 AM CDT RLQ abdominal pain CBC WITH DIFFERENTIAL Routine 12/28/2024 8:53 AM CDT RLQ abdominal pain from Last 3 Months Results * CT Abdomen Pelvis With Contrast (12/28/2024 9:30 AM CDT) Anatomical Region Laterality Modality Abdomen, Pelvis, Hip Computed To mography 12/28/2024 9:33 AM CDT Narrative 12/28/2024 9:35 AM CDT Indication R lower quadrant knot, Right lower quadrant abdominal mass Reference exam None available Technique Helical scan was performed from the diaphragm through the ischia during the uneventful bolus administration of nonionic intravenous contrast. Oral contrast was not administered. Sagittal and coronal reformatted images were obtained. One or more of the following dose reduction techniques was employed: automated exposure control, mA and/or kVp adjustment for patient size, and/or iterative reconstruction. Findings Incidental scanning through the lung bases is unremarkable. There is fatty change in the liver. Spleen is unremarkable. No biliary ductal dilatation. The gallbladder is distended but no gallstones or surrounding inflammation. The pancreas and adrenal glands are normal. The kidneys demonstrate symmetric nephrograms. No hydronephrosis. Abdominal aorta is normal in course and caliber without aneurysmal dilatation. No abnormal bowel or mesentery is identified. No free air, pneumatosis, or portal venous gas. No CT findings of appendicitis. No retroperitoneal adenopathy. No abdominal or pelvic free fluid. The urinary bladder is within expected limits. No pelvic or inguinal adenopathy is present. There has been a hysterectomy. No adnexal masses Review of bone targeted windows demonstrates no acute osseous findings. Impression No acute abdominal or pelvic abnormality. Procedure Note Grover Odom MD - 12/28/2024 Indication R lower quadrant knot, Right lower quadrant abdominal mass Reference exam None available Technique Helical scan was performed from the diaphragm through the ischia during the uneventful bolus administration of nonionic intravenous contrast. Oral contrast was not administered. Sagittal and coronal reformatted images were obtained. One or more of the following dose reduction techniques was employed: automated exposure control, mA and/or kVp adjustment for patient size, and/or iterative reconstruction. Findings Incidental scanning through the lung bases is unremarkable. There is fatty change in the liver. Spleen is unremarkable. No biliary ductal dilatation. The gallbladder is distended but no gallstones or surrounding inflammation. The pancreas and adrenal glands are normal. The kidneys demonstrate symmetric nephrograms. No hydronephrosis. Abdominal aorta is normal in course and caliber without aneurysmal dilatation. No abnormal bowel or mesentery is identified. No free air, pneumatosis, or portal venous gas. No CT findings of appendicitis. No retroperitoneal adenopathy. No abdominal or pelvic free fluid. The urinary bladder is within expected limits. No pelvic or inguinal adenopathy is present. There has been a hysterectomy. No adnexal masses Review of bone targeted windows demonstrates no acute osseous findings. Impression No acute abdominal or pelvic abnormality. Porsche Corona MD CT IMG ORDERABLES Final Result * (ABNORMAL) UA dipstick w micro if indicated (12/28/2024 9:30 AM CDT) Color UA Yellow Yellow 12/28/2024 9:43 AM CDT [facility] Clarity UA Clear Clear 12/28/2024 9:43 AM CDT [facility] pH UA 6.0 5.0 - 8.0 12/28/2024 9:43 AM CDT [facility] Specific Marquez UA 1.020 1.005 - 1.030 12/28/2024 9:43 AM CDT [facility] Glucose UA Negative Negative mg/dL 12/28/2024 9:43 AM CDT [facility] Ketones UA Negative Negative mg/dL 12/28/2024 9:43 AM CDT [facility] Bilirubin UA Negative Negative 12/28/2024 9:43 AM CDT [facility] Protein UA Negative Negative mg/dL 12/28/2024 9:43 AM CDT [facility] Leukocyte Esterase UA Negative Negative 12/28/2024 9:43 AM CDT [facility] Nitrite UA Negative Negative 12/28/2024 9:43 AM CDT [facility] Blood UA Negative Negative 12/28/2024 9:43 AM CDT [facility] Urobilinogen UA 0.2 0.2 - 1.0 E.U./dL 12/28/2024 9:43 AM CDT [facility] Squamous Epithelial Cells UA 0-2 0 - 2 /hpf 12/28/2024 9:43 AM CDT [facility] WBC UA 2-5(A) 0 - 1 /hpf 12/28/2024 9:43 AM CDT [facility] RBC UA 0-1 0 - 1 /hpf 12/28/2024 9:43 AM CDT [facility] Bacteria UA Trace(A) None Seen /hpf 12/28/2024 9:43 AM CDT [facility] Urine URINE SPECIMEN OBTAINED BY CLEAN CATCH PROCEDURE / Unknown Collection / Unknown 12/28/2024 9:30 AM CDT 12/28/2024 9:30 AM CDT us Porsche Corona MD URINE ORDERABLES Final Result [facility] [address] * (ABNORMAL) CBC with Differential (12/28/2024 8:53 AM CDT) WBC 4.7(L) 5.0 - 10.0 K/uL 12/28/2024 8:59 AM CDT [facility] RBC 5.20 4.10 - 5.40 M/uL 12/28/2024 8:59 AM CDT [facility] Hemoglobin 14.6 12.0 - 16.0 g/dL 12/28/2024 8:59 AM CDT [facility] Hematocrit 43.3 37.0 - 47.0 % 12/28/2024 8:59 AM CDT [facility] MCV 83.3 80.0 - 97.0 fL 12/28/2024 8:59 AM CDT [facility] MCH 28.1 27.0 - 32.0 pg 12/28/2024 8:59 AM CDT [facility] MCHC 33.7 32.0 - 36.0 g/dL 12/28/2024 8:59 AM CDT [facility] RDW CV 12.8 11.5 - 14.5 % 12/28/2024 8:59 AM CDT [facility] Platelet 505(H) 150 - 500 K/uL 12/28/2024 8:59 AM CDT [facility] MPV 8.0 7.4 - 10.4 fL 12/28/2024 8:59 AM CDT [facility] Absolute Neutrophil 1.9(L) 2.5 - 7.5 K/uL 12/28/2024 8:59 AM CDT [facility] Absolute Lymphocyte 2.5 1.0 - 4.0 K/uL 12/28/2024 8:59 AM CDT [facility] Mixed Cells absolute 0.3 K/uL 12/28/2024 8:59 AM CDT [facility] Neutrophil percent 40.0(L) 50.0 - 75.0 % 12/28/2024 8:59 AM CDT [facility] Lymphocyte percent 53.3(H) 20.0 - 40.0 % 12/28/2024 8:59 AM CDT [facility] Mixed Cells percent 6.7 % 12/28/2024 8:59 AM CDT [facility] Blood Venipuncture / Unknown 12/28/2024 8:53 AM CDT 12/28/2024 8:53 AM CDT us Porsche Corona MD LAB BLOOD ORDERABLES Final Resu lt [facility] [address] * (ABNORMAL) Comprehensive Metabolic Panel (12/28/2024 8:53 AM CDT) Sodium 138 135 - 145 mmol/L 12/28/2024 9:12 AM CDT [facility] Potassium 3.5 3.5 - 5.0 mmol/L 12/28/2024 9:12 AM CDT [facility] Chloride 100 98 - 107 mmol/L 12/28/2024 9:12 AM CDT [facility] Carbon Dioxide 30 21 - 32 mmol/L 12/28/2024 9:12 AM CDT [facility] Anion Gap 8 6 - 16 mmol/L 12/28/2024 9:12 AM CDT [facility] Glucose 101 70 - 110 mg/dL 12/28/2024 9:12 AM CDT [facility] BUN 14 7 - 18 mg/dL 12/28/2024 9:12 AM CDT [facility] Creatinine 0.90 0.60 - 1.30 mg/dL 12/28/2024 9:12 AM CDT [facility] BUN/Creatinine Ratio 15.6(H) 11.7 - 13.9 12/28/2024 9:12 AM CDT [facility] Calcium 10.5(H) 8.5 - 10.1 mg/dL 12/28/2024 9:12 AM CDT [facility] Comment:Calcium measurements are adversely affected by the use of Omniscan during MRI. Analysis of calcium is not recommended for 12 to 24 hours after the use of the contrast agent. Protein total 8.9(H) 6.4 - 8.2 g/dL 12/28/2024 9:12 AM CDT [facility] Albumin 5.1(H) 3.4 - 5.0 g/dL 12/28/2024 9:12 AM CDT [facility] Bilirubin Total 0.7 0.0 - 1.0 mg/dL 12/28/2024 9:12 AM CDT [facility] AST 33 7 - 34 U/L 12/28/2024 9:12 AM CDT [facility] ALT 26 16 - 62 U/L 12/28/2024 9:12 AM CDT [facility] ALP 42(L) 50 - 136 U/L 12/28/2024 9:12 AM CDT [facility] eGFR 2020 CKD-EPI-cr 68.9 >60.0 mL/min/1. 73m*2 12/28/2024 9:12 AM CDT [facility] Blood Venipuncture / Unknown 12/28/2024 8:53 AM CDT 12/28/2024 8:53 AM CDT us Porsche Corona MD LAB BLOOD ORDERABLES Final Resu lt [facility] [address] from Last 3 Months Insurance MEDICARE [facility] [place] MED[place] SUPPLEMENT [id number] Care Teams Potato Loader Relationship Specialty Start Date End Date Pcp, No PCP - General 01/21/22
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
--- OUTSIDE RECORDS SUMMARY | 2025-02-04 11:23 | XMS_ITS | Patient Health Record ---
Author Organization [facility] Address [address] [place] [address] Care Team Providers Care Telephone Sales Representative Name Role Phone RANCHO POTTER Primary Care Provider Allergies Allergen (clinical drug ingredient) Drug/Non Drug Allergy documented on EMR Reaction Allergy Type Onset Date Status Substance with 3-ckhqota-7-methylglutar yl-coenzyme A reductase inhibitor mechanism of action (substance) Statins Unknown Drug Allergy Active Substance with sulfonamide structure and antibacterial mechanism of action (substance) Sulfa Antibiotics Unknown Drug Allergy Active Reason For Referral No Information Medications Medication SIG (Take, Route, Frequency, Duration) Notes Start Date End Date Status Metoprolol Succinate 25 mg 1 capsule Orally Once a day; Duration: 90 days Active Famotidine 40 MG 1 tablet Orally Once a day; Duration: 90 days 06/07/2024 Active Fenofibrate 160 MG 1 tablet Orally Once a day; Duration: 90 days Not-Takin g Repatha 140 MG/ML 1 mL Subcutaneous on ce a month; Duration: 30 days 03/24/2025 Active Astepro 205.5 MCG/SPRAY 2 sprays in each nostril Nasally three times a day; Duration: 30 days 01/05/2024 Not-Taking Montelukast Sodium 10 MG 1 tablet Orally Once a day; Duration: 30 days 01/05/2024 Not-Takin g Cetirizine HCl 10 MG 1 tablet Orally Onc e a day; Duration: 30 days 01/05/2024 Not-Takin g Aciphex 20 MG 1 tablet Orally Once a day; Duration: 90 days 06/07/2024 Active Fluticasone Furoate 27.5 MCG/SPRAY (1 spray in each nostril) Nasally three times a day; Duration: 30 days 01/05/2024 Not-Taking Social History Sex Assigned At : Social History Observation Description Sex Assigned At Female Section Notes: , non smoker, no alco hol use , non smoker, no alco hol use , non smoker, no alco hol use , non smoker, no alco hol use , non smoker, no alco hol use , non smoker, no alco hol use , non smoker, no alco hol use , non smoker, no alco hol use Problems Problem Type SNOMED Code ICD Code Onset Dates Problem Status W/U Status Risk Notes Problem Hypertension (56193809) Hypertension (401.9) Active confirmed Problem Hyperlipidemia (41183014) Hyperlipidemia (272.4) Active confirmed Problem Essential hypertension (41999263) Essential (primary) hypertension (I10) Active confirmed Problem Irritable bowel syndrome with diarrhea (685411985) Irritable bowel syndrome with diarrhea (K58.0) Active confirmed Problem Irritable bowel syndrome characterized by constipation (157355551) Irritable bowel syndrome with constipation (K58.1) Active confirmed Problem Irritable bowel syndrome (08302959) Other irritable bowel syndrome (K58.8) Active confirmed Problem Hypertension (27488928) Hypertension (I10) Active confirmed Problem Gastroesophageal reflux disease (531690920) GERD (gastroesophageal reflux disease) (K21.9) Active confirmed Problem Hyperlipidemia (47717218) Hyperlipidemia (E78.5) Active confirmed Problem Sinusitis (73662449) Sinusitis (J32.9) Active confirmed seasona l/aller gic Problem Hyperlipidaemia (63733215) Hyperlipemia (E78.5) Active confirmed Vital Signs Heart Rate 72 /min 10/25/2024 Temperature 98 degrees Fahrenheit 10/25/2024 Respiratory Rate 18 /min 10/25/2024 Blood pressure diastolic 74 mm Hg 10/25/2024 Oximetry 99 % 10/25/2024 Height 62 in 10/25/2024 Blood pressure systolic 130 mm Hg 10/25/2024 Weight 124.6 lbs 10/25/2024 BMI 22.79 kg/m2 10/25/2024 Procedures Procedure Date Ordered Date Performed Result Body Sit e VENIPUNCT, ROUTINE* 10/25/2024 N/A Encounters Encounter Location Date Provider Diagnosis [facility] [address] [place] [phone] 02/16/2024 RANCHO POTTER Hypertension I10 ; Hyperlipemia E78.5 ; Other irritable bowel syndrome K58.8 ; Sinusitis J32.9 and Irritable bowel syndrome with constipation K58.1 [facility] [address] [place] [phone] 02/23/2024 RANCHO POTTER Hyperlipemia E78.5 ; Hypertension I10 ; Irritable bowel syndrome with constipation K58.1 and Hyperkalemia E87.5 [facility] [address] [place] [phone] 06/07/2024 RANCHO POTTER Essential (primary) hypertension I10 ; Irritable bowel syndrome with constipation K58.1 ; Abdominal pain R10.9 ; Hyperlipemia E78.5 ; Thyroid disorder screening Z13.29 ; Encounter for vitamin deficiency screening Z13.21 ; Diabetes mellitus screening Z13.1 ; GERD (gastroesophageal reflux disease) K21.9 and Hyperkalemia E87.5 [facility] [address] [place] [phone] 06/24/2024 RANCHO POTTER Hyperlipidemia E78.5 ; Hypertension I10 ; Prediabetes R73.03 and Irritable bowel syndrome with constipation K58.1 [facility] [address] [place] [id number] 10/25/2024 RANCHO POTTER Essential (primary) hypertension I10 ; Hyperlipidemia E78.5 ; Diabetes mellitus screening Z13.1 ; Thyroid disorder screening Z13.29 ; GERD (gastroesophageal reflux disease) K21.9 ; Hyperlipemia E78.5 and Drug therapy Z79.899 [facility] [address] [place] [phone] 03/05/2024 RANCHO POTTER Irritable bowel syndrome with constipation K58.1 [facility] [address] [place] [phone] 03/25/2024 RANCHO POTTER Hypertension I10 [facility] [address] [place] [phone] 04/14/2024 RANCHO POTTER Irritable bowel syndrome with constipation K58.1 [facility] [address] [place] [phone] 04/20/2024 RANCHO POTTER Hypertension I10 [facility] [address] [place] [phone] 08/18/2024 RANCHO POTTER GERD (gastroesophage al reflux disease) K21.9 [facility] [address] [place] [address] 11/15/2024 RANCHO POTTER GERD (gastroesophage al reflux disease) K21.9 Assessments Encounter Date Diagnosis (ICD Code) Assessment Notes Treatment Notes Treatment Clinical Notes Section Notes 02/23/2024 Hypertension (ICD-10 - I10) 02/23/2024 Hyperlipemia (ICD-10 - E78.5) Continue all mediations as listed below refilled 90days with a refill patient will come in 1 month for lab draw only for potassium pt will be notified with information once it comes back follow up in office for routine check up 4 months pt agrees with treatment plan 03/05/2024 Irritable bowel syndrome with constipation (ICD-10 - K58.1) 03/25/2024 Hypertension (ICD-10 - I10) 04/14/2024 Irritable bowel syndrome with constipation (ICD-10 - K58.1) 04/20/2024 Hypertension (ICD-10 - I10) 06/07/2024 Essential (primary) hypertension (ICD-10 - I10) Refilled medications as listed. Started pt on famotidine 40mg daily started AcipHex 20 mg daily labs drawn in office today pt follow up in two weeks to review labs and to see how new medications are working 02/16/2024 Hypertension (ICD-10 - I10) Labs drawn in office today no medication changes made today as of now Patient is to RTC in 2 weeks to go over lab results from labs drawn today. Patient agrees with treatment plan 02/16/2024 Hyperlipemia (ICD-10 - E78.5) 06/07/2024 Irritable bowel syndrome with constipation (ICD-10 - K58.1) 06/24/2024 Hypertension (ICD-10 - I10) 06/24/2024 Hyperlipidemia (ICD-10 - E78.5) 08/18/2024 GERD (gastroesophageal reflux disease) (ICD-10 - K21.9) 10/25/2024 Essential (primary) hypertension (ICD-10 - I10) labs drawn in office today pt will be notified if any abnormalities come back in blood work refilled medications next routine follow up in office 4 months or sooner if needed 10/25/2024 Hyperlipidemia (ICD-10 - E78.5) 11/15/2024 GERD (gastroesophageal reflux disease) (ICD-10 - K21.9) 06/24/2024 Prediabetes (ICD-10 - R73.03) 10/25/2024 Diabetes mellitus screening (ICD-10 - Z13.1) 06/07/2024 Abdominal pain (ICD-10 - R10.9) 02/16/2024 Other irritable bowel syndrome (ICD-10 - K58.8) 02/23/2024 Irritable bowel syndrome with constipation (ICD-10 - K58.1) 02/23/2024 Hyperkalemia (ICD-10 - E87.5) 02/16/2024 Sinusitis (ICD-10 - J32.9) [facility] 06/07/2024 Hyperlipemia (ICD-10 - E78.5) 10/25/2024 Thyroid disorder screening (ICD-10 - Z13.29) 06/24/2024 Irritable bowel syndrome with constipation (ICD-10 - K58.1) 06/07/2024 Thyroid disorder screening (ICD-10 - Z13.29) 10/25/2024 GERD (gastroesophageal reflux disease) (ICD-10 - K21.9) 02/16/2024 Irritable bowel syndrome with constipation (ICD-10 - K58.1) 06/07/2024 Encounter for vitamin deficiency screening (ICD-10 - Z13.21) 10/25/2024 Hyperlipemia (ICD-10 - E78.5) 10/25/2024 Drug therapy (ICD-10 - Z79.899) 06/07/2024 Diabetes mellitus screening (ICD-10 - Z13.1) 06/07/2024 GERD (gastroesophageal reflux disease) (ICD-10 - K21.9) 06/07/2024 Hyperkalemia (ICD-10 - E87.5) history of 06/24/2024 Other Again fenofibrate will be stopped as of today and begin ezetimibe 10 mg daily tomorrow will only give 30 for the first month if does well with that and tolerates with no problems will give 90 with a refill on following refills. Again reviewed all labs with patient CMP was good lipid panel was good except for the triglyceride of 230 but the total cholesterol and bad cholesterol were normal. CBC was good as well and GFR is good with A1c prediabetic at 6.2 and fasting blood sugar was normal at 94. Discussed at length with patient patient is very appreciative agreeable and understanding. Follow-up appointment: 4 months or sooner if circumstances dictate and already left voicemail for the prescription of the ezetimibe at the [facility] in [place]. Plan Of Treatment Pending Test Test Name Order Date Hemoglobin A1c 06/07/2024 Hemoglobin A1c 10/25/2024 CBC With Differential/Platelet Vitamin D, 25-Hydroxy 11/06/2023 Vitamin D, 25-Hydroxy 06/07/2024 Vitamin D, 25-Hydroxy 10/25/2024 Lipid Panel 06/07/2024 Lipid Panel 11/06/2023 Lipid Panel 10/25/2024 VENIPUNCT, ROUTINE* 10/25/2024 cmp 10/25/2024 cmp 11/06/2023 cmp 06/07/2024 Glomerular filtration rate 06/07/2024 Glomerular filtration rate 11/06/2023 Glomerular filtration rate 10/25/2024 TSH and Free T4 11/06/2023 TSH and Free T4 06/07/2024 TSH and Free T4 10/25/2024 CBC w/ manual differential 10/25/2024 CBC w/ manual differential 06/07/2024 Next Appt Details Provider Name:RANCHO POTTER, 02/14/2025 10:15:00 AM, [address] [place], [address], Provider Name:RANCHO POTTER, 03/01/2025 09:00:00 AM, [address] [place], [id number], Insurance Providers Payer Name Payer Address Payer Phone Subscriber Number Group Number Insured Name Patient Relationship to Insured Coverage Start Date Coverage End Date MEDICARE [address] [place] [address] [id number] SANTIAGO STONE Self - patient is the [facility] [address] [address] [facility], [address] [id number] SANTIAGO MORRIS Self - patient is the insured Medications Administered Medication Instructions Date of Administration Dosage Notes DEPO-Medrol 01/05/2024 40 mg Medical (General) History Medical History History ICD Code Hyperlipemia E78.5 Hypertension I10 Surgical History Surgery Date(Month/Year) hysterectomy bilateral salpingo-oophorerectomy Hospitalization History Reason Date(Month/Year) chilbirth x 2 same as surg
--- OUTSIDE RECORDS SUMMARY | 2025-02-04 11:23 | XMS_ITS | Patient Health Record ---
Author Organization [facility] Address [address] [place] [address] Care Team Providers Care Lead Designer Name Role Phone NoelRichard taylor Unavailable [phone] Bernard Cadet Unavailable [phone] Allergies Allergen (clinical drug ingredient) Drug/Non Drug Allergy documented on EMR Reaction Allergy Type Onset Date Status valsartan Diovan Unknown Drug Allergy Active Substance with sulfonamide structure and antibacterial mechanism of action (substance) Sulfa Antibiotics Unknown Drug Allergy Active Results Component Value Reference Range Notes EKG Portable Reviewed date:06/24/2024 05:25:07 PM Interpretation: Performing Lab: Notes/Report: ECGDiastolicBP 0 ECGDiastolicBP 0 ECGHr 74 ECGHr 76 ECGPRInterval 186 ECGPRInterval 178 ECGPWaveAxis 62 ECGPWaveAxis 52 ECGQRSDuration 86 ECGQRSDuration 90 ECGQrsWaveAxis 61 ECGQrsWaveAxis 48 ECGQTcInterval 418 ECGQTcInterval 424 ECGQTInterval 394 ECGQTInterval 396 ECGSystolicBP 0 ECGSystolicBP 0 ECGTWaveAxis 64 ECGTWaveAxis 48 RR_DiastolicBP 0 RR_DiastolicBP 0 RR_MaxRRInterval 0 RR_MaxRRInterval 0 RR_MeanHR 0 RR_MeanHR 0 RR_MeanRRInterval 0 RR_MeanRRInterval 0 RR_MinRRInterval 0 RR_MinRRInterval 0 RR_NumBeats 0 RR_NumBeats 0 RR_NumNormalBeats 0 RR_NumNormalBeats 0 RR_SystolicBP 0 RR_SystolicBP 0 EKG Portable Reviewed date:06/24/2024 05:25:07 PM Interpretation: Performing Lab: Notes/Report: ECGDiastolicBP 0 ECGDiastolicBP 0 ECGHr 74 ECGHr 76 ECGPRInterval 186 ECGPRInterval 178 ECGPWaveAxis 62 ECGPWaveAxis 52 ECGQRSDuration 86 ECGQRSDuration 90 ECGQrsWaveAxis 61 ECGQrsWaveAxis 48 ECGQTcInterval 418 ECGQTcInterval 424 ECGQTInterval 394 ECGQTInterval 396 ECGSystolicBP 0 ECGSystolicBP 0 ECGTWaveAxis 64 ECGTWaveAxis 48 RR_DiastolicBP 0 RR_DiastolicBP 0 RR_MaxRRInterval 0 RR_MaxRRInterval 0 RR_MeanHR 0 RR_MeanHR 0 RR_MeanRRInterval 0 RR_MeanRRInterval 0 RR_MinRRInterval 0 RR_MinRRInterval 0 RR_NumBeats 0 RR_NumBeats 0 RR_NumNormalBeats 0 RR_NumNormalBeats 0 RR_SystolicBP 0 RR_SystolicBP 0 Reason For Referral No Information Medications Medication SIG (Take, Route, Frequency, Duration) Notes Start Date End Date Status hydroCHLOROthiazide 25 MG Tablet Oral; Duration: 90 Days Active PEG 3350-KCl-Na Bicarb-NaCl 420 GM Solution Reconstituted Oral; Duration: 1 Days Active Fenofibrate 160 MG Tablet Oral; Duration : 90 Days Active Montelukast Sodium 10 MG Tablet Oral; Du ration: 30 Days Active Meclizine HCl 25 MG Tablet Oral; Duratio n: 16 Days Active Hyoscyamine Sulfate 0.125 MG Tablet Disintegrating 1 tablet on the tongue and allow to dissolve as needed Orally every 4 hrs; Duration: 3 days 06/06/2024 Active Repatha SureClick 140 MG/ML Solution Auto-injector INJECT 140 MG UNDER THE SKIN EVERY 2 WEEKS Subcutaneous; Duration: 84 Days Active Metoprolol Succinate ER 25 M G Tablet Extended Release 24 Hour Oral; Duration: 90 Days Active Social History Tobacco Use: Social History Observation Description Date Details (start date - stop date) Never Smoker NA - NA Social History Drugs/Alcohol: Social Info Question Answer Notes Drugs Have you used drugs other than those for medical reasons in the past 12 months? No Caffeine Intake: 1-2 cups per day Tobacco Use: Social Info Question Answer Notes Tobacco Control (Standard) Tobacco use: Nonsmoker Additional Details Category Social Info Options Details Drugs/Alcohol: Do you drink alcohol? No, Madyson Bradshaw 06/06/2024 04:28:37 PM CDT > Vital Signs Heart Rate 73 /min 06/06/2024 Temperature 98.1 degrees Fahrenheit 06/06/2024 Height-cm 157.48 cm 06/06/2024 Oximetry 98 % 06/06/2024 Blood pressure diastolic 65 mm Hg 06/06/2024 Weight-kg 57.61 kg 06/06/2024 Height 62 in 06/06/2024 Blood pressure systolic 129 mm Hg 06/06/2024 Weight 127 lbs 06/06/2024 BMI 23.23 kg/m2 06/06/2024 Encounters Encounter Location Date Provider Diagnosis [facility] [address] [place] [address] 06/06/2024 Bernard Cadet Chest pain, unspecified type R07.9 ; Shortness of breath R06.02 ; History of IBS Z87.19 and Abdominal cramping R10.9 Assessments Encounter Date Diagnosis (ICD Code) Assessment Notes Treatment Notes Treatment Clinical Notes Section Notes 06/06/2024 Shortness of breath (ICD-10 - R06.02) 06/06/2024 Chest pain, unspecified type (ICD-10 - R07.9) Sent to emergency room for evaluation of emergent condition. Report called to Bharathi at [facility]. to drive patient to ED. 06/06/2024 History of IBS (ICD-10 - Z87.19) 06/06/2024 Abdominal cramping (ICD-10 - R10.9) Take medication as directed. Follow up with PCP/GI if no improvement. Patient advised that medication can cause constipation which she already has so if it worsens then do not take medication. Plan Of Treatment No Information Insurance Providers Payer Name Payer Address Payer Phone Subscriber Number Group Number Insured Name Patient Relationship to Insured Coverage Start Date Coverage End Date Medicare of [place] - [facility] [address] [address] [place] [address] [id number] Dolly Scott Self - patient is the insured 0 [place] 1 [facility] [place] [phone] [id number] Dolly Scott Self - patient is the insured 0 Medical (General) History Medical History History ICD Code high cholestrol high blood pressure Fluid Retention spastic colon high triglycerides cataracts hearing loss Surgical History Surgery Date(Month/Year) hysterectomy
--- NOTE | 2025-02-04 11:24 | W.ED.ABDPA2 ---
HPI - Abdominal Pain General: Chief Complaint: Abdominal Pain Stated Complaint: lower abd pain/swelling right side Time Seen by Provider: 02/04/25 11:17 Source: patient Mode of arrival: ambulatory Limitations: no limitations History of Present Illness: Patient is a 69-year-old female presents to ED today along with her significant other here for complaints of right lower quadrant pain and swelling. She states this has been present for several weeks/months but she feels like symptoms are worsening and it is now making her nauseous. She states she is up-to-date on her colonoscopy. She does report a previous complete hysterectomy. She does report having imaging performed in [place] several weeks ago and was told it was normal. Patient does have IBS-C and does treat with MiraLAX. She has not had any vomiting. No fevers. MD elicited complaint: abdominal pain Pertinent past history: constipation Onset (ago): week(s) Pain Consistency: constant Location: RLQ Severity: moderate Quality: aching and other (swollen) Radiation: none Migration to: no migration Exacerbating factors: nothing Relieving factors: nothing Associated Symptoms: Reports constipation and nausea; Denies chills, dysuria, fever(s), hematochezia, hematuria, melena and vomiting Related Data Home Medications ?Medication ?Instructions ?Recorded ?Confirmed calcium carbonate (Calcium 600) 600 mg PO DAILY 02/04/25 02/04/25 cholecalciferol (vitamin D3) 25 25 mcg PO DAILY 02/04/25 02/04/25 mcg (1,000 unit) tablet (Vitamin D3) famotidine 40 mg tablet 40 mg PO DAILY 02/04/25 02/04/25 fluticasone propionate 50 1 spray intranasal BID PRN 02/04/25 02/04/25 mcg/actuation nasal allergies spray,suspension (Flonase Allergy Relief) hydrochlorothiazide 25 mg tablet 25 mg PO QAM 02/04/25 02/04/25 vitamin E 268 mg (400 unit) capsule 268 mg PO QAM 02/04/25 02/04/25 Previous Rx's ?Medication ?Instructions ?Recorded Repatha SureClick 140 mg/mL 140 mg SUBCUT .q2 weeks #2 mL 12/15/24 subcutaneous pen injector (evolocumab) chlordiazepoxide-clidinium 5 1 cap PO TID #90 caps 12/15/24 mg-2.5 mg capsule (Librax (with clidinium)) fenofibrate 160 mg tablet 160 mg PO DAILY #90 tabs 12/15/24 metoprolol succinate 25 mg 25 mg PO DAILY #90 tabs 12/15/24 tablet,extended release 24 hr rabeprazole 20 mg tablet,delayed 20 mg PO DAILY #90 tabs 12/15/24 release (AcipHex) Allergies Allergy/AdvReac Type Severity Reaction Status Date / Time Sulfa (Sulfonamide Allergy ALGY-Hives Verified 02/04/25 11:25 Antibiotics) valsartan (From Diovan) Allergy ADR-Chest Verified 02/04/25 11:25 Pain Review of Systems Const: Denies: fever(s), chills, body aches, fatigue or malaise Card: Denies: chest pain Resp: Denies: dyspnea GI: Reports: abdominal pain, nausea and constipation; Denies: vomiting, hematochezia or melena : Denies: flank pain, difficulty voiding, dysuria, urinary frequency, urinary urgency or hematuria Musc: Denies: back pain Skin/Breast: Denies: rash Neuro: Denies: headache(s) or dizziness PFSH ED PFSH: Social History Smoking and tobacco/nicotine status: never used tobacco/nicotine Second hand smoke exposure: No Alcohol intake: never Substance/Drug Use: never Physical Exam Const: COMMON NORMALS: no acute distress, average body habitus, patient oriented x3, no limitations, healthy appearing, alert and well nourished GENERAL APPEARANCE: cooperative ORIENTATION/CONSCIOUSNESS: Yes awake, Yes oriented to person, Yes oriented to place and Yes oriented to time Resp: COMMON NORMALS: normal respiratory effort and clear to auscultation bilaterally AUSCULTATION: clear to auscultation bilaterally Cardio: COMMON NORMALS: regular rate and regular rhythm RATE: regular rate RHYTHM: regular rhythm GI: COMMON NORMALS: Normal to inspection, nondistended, normoactive bowel sounds present, Soft to palpation, No hepatosplenomegaly present and no masses INSPECTION: Yes normal to inspection AUSCULTATION: Yes normoactive bowel sounds PALPATION: Yes Soft to palpation, Yes Tenderness to palpation present (GI) (across lower abdomen mainly RLQ), No Guarding due to palpation present (GI), No Rigid due to palpation and Yes No hepatosplenomegaly present : COMMON NORMALS: Yes no CVA tenderness BLADDER/KIDNEY EXAM: Yes no CVA tenderness Back/Pelvis: COMMON NORMALS: no CVA tenderness, thoracic and lumbar spine normal to inspection and no thoracic nor lumbar tenderness Extremity: GENERAL: Yes normal exam except as noted Neuro: COMMON NORMALS: patient oriented x3, moves all extremities, no focal motor deficits, no sensory deficits noted and gait normal SENSORIUM/ORIENTATION: Yes alert, Yes oriented to person, Yes oriented to place and Yes oriented to time Skin: COMMON NORMALS: no rashes or lesions noted GENERAL SKIN EXAM: no rashes or lesions noted Course Vital Signs: Vital signs: Vital Signs Temperature 98.1 F 02/04/25 11:22 Pulse Rate 82 02/04/25 11:22 Respiratory Rate 16 02/04/25 11:22 Blood Pressure 184/73 02/04/25 11:22 Pulse Oximetry 95 02/04/25 11:22 Oxygen Delivery Me thod Room Air 02/04/25 11:22 MDM - Abdominal Pain Medical Decision Making Patient here for right lower quadrant abdominal pain that has been present over the past 2 months or so. Blood work overall is nonactionable. UA did have 2+ leukocyte esterase and 6-10 WBCs. She is not complaining of dysuria, frequency, urgency. She would like to forego antimicrobial therapy at this time until culture returns which I think is reasonable. CT scan showing no acute abnormalities. Patient will be allowed discharge. She states she was following up with a GI specialist but during her last encounter with them-they had a falling out/dispute and she is now requesting a different referral. She is hoping to go to [place] if they have a GI specialist. Case management referral will be placed for this. She can continue to follow-up with primary care in the meantime. Differential Diagnosis Likely abdominal pain Medical Records I reviewed the patient's medical records. Lab Data I reviewed the patient's lab results. 02/04/25 11:23 02/04/25 11:23 Labs/Radiology: Radiology Impressions Abdomen/Pelvis CT 02/04/25 11:31 IMPRESSION: 1. Prior hysterectomy. 2. Appendix is not visualized but no evidence of acute appendicitis. 3. No other acute findings. Laboratory Results WBC 6.24 10^3/uL (3.29-11.43) 02/04/25 11:23 RBC 5.07 10^6/uL (3.85-5.65) 02/04/25 11:23 Hgb 14.50 g/dL (11.27-16.99) 02/04/25 11:23 Hct 42.8 % (36-47) 02/04/25 11:23 MCV 84.4 fl (85-98) L 02/04/25 11:23 MCH 28.6 pg (27-33) 02/04/25 11:23 MCHC 33.9 g/dL (30-55) 02/04/25 11:23 RDW 12.6 % (12.1-15.1) 02/04/25 11:23 Plt Count 447 10^3/cmm (157-399) H 02/04/25 11:23 MPV 8.3 fL (7.4-10.4) 02/04/25 11:23 Neut % (Auto) 37.2 % 02/04/25 11:23 Lymph % (Auto) 52.1 % 02/04/25 11:23 [place] % (Auto) 7.2 % 02/04/25 11:23 Eos % (Auto) 1.8 % 02/04/25 11:23 Baso % (Auto) 1.4 % 02/04/25 11:23 Neut # (Auto) 2.32 10^3/uL (1.8-7.7) 02/04/25 11:23 Lymph # (Auto) 3.3 10^3/uL (0.8-4.8) 02/04/25 11:23 [place] # (Auto) 0.5 10^3/uL (0.2-0.9) 02/04/25 11:23 Eos # (Auto) 0.1 10^3/uL (0.0-0.8) 02/04/25 11:23 Baso # (Auto) 0.1 10^3/uL (0.0-0.1) 02/04/25 11:23 Nucleated RBC % (auto) 0 % 02/04/25 11:23 Nucleated RBCs # 0.0 /100WBC 02/04/25 11:23 Sodium 139 mmol/L (136-145) 02/04/25 11:23 Potassium 3.6 mmol/L (3.5-5.1) 02/04/25 11:23 Chloride 98 mmol/L (98-107) 02/04/25 11:23 Carbon Dioxide 28 mmol/L (22-29) 02/04/25 11:23 Anion Gap 16.6 (5-19) 02/04/25 11:23 BUN 16 mg/dL (8-23) 02/04/25 11:23 Creatinine 0.9 mg/dL (0.5-0.9) 02/04/25 11:23 GFR Calculation 61.9 mL/min (90-130) L 02/04/25 11:23 Glucose 106 mg/dL (65-115) 02/04/25 11:23 Calculated Osmolality 290 mOsm/kg (285-295) 02/04/25 11:23 Calcium 10.4 mg/dL (8.5-10.5) 02/04/25 11:23 Total Bilirubin 0.3 mg/dL (0.15-1.2) 02/04/25 11:23 AST 28 U/L (0-32) 02/04/25 11:23 ALT 16 U/L (0-33) 02/04/25 11:23 Alkaline Phosphatase 40 U/L (35-105) 02/04/25 11:23 Total Protein 7.9 g/dL (6.6-8.7) 02/04/25 11:23 Albumin 5.1 g/dL (3.5-5.2) 02/04/25 11:23 Globulin 2.8 g/dL (1.3-4.6) 02/04/25 11:23 Lipase 33 U/L (13-60) 02/04/25 11:23 Urine Color Yellow (Yellow) 02/04/25 11:28 Urine Appearance Clear (CLEAR) 02/04/25 11:28 Urine pH 6.5 (5-7) 02/04/25 11:28 Ur Specific [place] 1.019 (1.005-1.030) 02/04/25 11:28 Urine Protein Negative (Negative) 02/04/25 11:28 Urine Glucose (UA) Negative (Normal) 02/04/25 11:28 Urine Ketones Negative (Negative) 02/04/25 11:28 Urine Blood Negative (Negative) 02/04/25 11:28 Urine Nitrate Negative (Negative) 02/04/25 11:28 Urine Bilirubin Negative (Negative) 02/04/25 11:28 Urine Urobilinogen 1.0 mg/dL (Negative) 02/04/25 11:28 Ur Leukocyte Esterase 2+ (Negative) A 02/04/25 11:28 Urine RBC 0-2 /hpf (0-2) 02/04/25 11:28 Urine WBC 6-10 /hpf (0-5) 02/04/25 11:28 Ur Squamous Epith Cells 0-5 /hpf (0-5) 02/04/25 11:28 Amorphous Sediment Not Reportable 02/04/25 11:28 Urine Bacteria None seen /hpf (NONE) 02/04/25 11:28 Hyaline Casts 0.81 /lpf 02/04/25 11:28 All radiology interpretation(s) finalized by discharge Discharge Plan Discharge Patient Disposition: Home Clinical Impression: Right lower quadrant abdominal pain Condition: Stable Prescriptions: No Action chlordiazepoxide-clidinium [Librax (with clidinium)] 5-2.5 mg capsule 1 cap PO TID Qty: 90 5RF Repatha SureClick 140 mg/mL pen injector 140 mg SUBCUT .q2 weeks Qty: 2 11RF fenofibrate 160 mg tablet 160 mg PO DAILY Qty: 90 3RF metoprolol succinate 25 mg tablet extended release 24 hr 25 mg PO DAILY Qty: 90 3RF rabeprazole [AcipHex] 20 mg tablet,delayed release (DR/EC) 20 mg PO DAILY Qty: 90 3RF famotidine 40 mg tablet 40 mg PO DAILY calcium carbonate [Calcium 600] 600 mg calcium (1,500 mg) Tablet 600 mg PO DAILY vitamin E 268 mg (400 unit) Capsule 268 mg PO QAM Rx Instructions: 400 iu cholecalciferol (vitamin D3) [Vitamin D3] 25 mcg (1,000 unit) Tablet 25 mcg PO DAILY hydrochlorothiazide 25 mg tablet 25 mg PO QAM fluticasone propionate [Flonase Allergy Relief] 50 mcg/actuation spray,suspension 1 spray intranasal BID PRN (Reason: allergies) Rx Instructions: administer into each nostril Discharge Orders: Discharge ED (Routine); Ordered 02/04/25 Ordered By: Darlyn Bass Referrals: Ramesh Chapman DO [Primary Care Provider, Family Practice] Patient Instructions: Abdominal Pain (ED), Patient Portal & [facility] Instructions Activity Restrictions/Additional Instructions: As we discussed, your blood work here overall was unremarkable. UA slightly suspicious for infection but you are asymptomatic so we will culture and hold off on antibiotics at this time. CT scan showing no acute abnormalities. We discussed following up with GI and case management referral has been placed for this. He may continue to follow-up with your primary adult care manager. Print Language: Vietnamese Coding Level of Care Code ED Administrative Staff Supervisor for Jose D Shah
--- NOTE | 2025-02-04 11:31 | CT_ITS ---
WS: [id number] CT ABDOMEN PELVIS TECHNIQUE: Contrast-enhanced CT of the abdomen and pelvis with coronal and sagittal reformatted images. CLINICAL INFORMATION: R lower abdominal pain/swelling; nausea COMPARISON: None. DLP: 380.[address] scans at [facility] use at least one of these dose optimization techniques: automated exposure control; mA and/or kV adjustment per patient size (includes targeted exams where dose is matched to clinical indication); or iterative reconstruction. FINDINGS: Prior hysterectomy. Appendix is nonvisualized. No evidence of acute appendicitis. Normal liver. Normal spleen. Normal portal vein and splenic vein. Lung bases are well aerated. Normal GE junction. Normal pancreas. Normal portal vein and splenic vein. Normal spleen. Adrenal glands are normal. No hydronephrosis in either kidney. Tiny fat-containing umbilical hernia. Moderate spondylitic changes lumbar spine. Disc osteophyte protrusions L3-L4 and L4-L5. Tiny bladder cystocele. No other remarkable findings. CT/CT abdomen pelvis w con* [id number] IMPRESSION: 1. Prior hysterectomy. 2. Appendix is not visualized but no evidence of acute appendicitis. 3. No other acute findings.
[2025-02-04 11:42] LABS: Hematocrit 42.8 % (36-47); Hemoglobin 14.50 g/dL (11.27-16.99); Mean Corpuscular HGB Conc 33.9 g/dL (30-55); Mean Corpuscular Hemoglobin 28.6 pg (27-33); Mean Corpuscular Volume 84.4 fl (85-98); Nucleated Red Blood Cells % 0 %; Platelet Count 447 10^3/cmm (157-399); Red Blood Count 5.07 10^6/uL (3.85-5.65); White Blood Count 6.24 10^3/uL (3.29-11.43)
[2025-02-04 11:47] LABS: Glucose Urine UA Negative (Normal); Nitrate Urine Negative (Negative); Specific Gravity, Urine 1.019 (1.005-1.030)
[2025-02-04 11:53] LABS: Add Urine Microscopic? YES
[2025-02-04 11:59] LABS: Alanine Aminotransferase 16 U/L (0-33); Albumin Level 5.1 g/dL (3.5-5.2); Alkaline Phosphatase 40 U/L (35-105); Anion Gap 16.6 (5-19); Aspartate Amino Transferase 28 U/L (0-32); Blood Urea Nitrogen 16 mg/dL (8-23); Calcium 10.4 mg/dL (8.5-10.5); Carbon Dioxide 28 mmol/L (22-29); Chloride 98 mmol/L (98-107); Creatinine Clr Calc Pharmacy 48.4260; Globulin 2.8 g/dL (1.3-4.6); Glucose 106 mg/dL (65-115); Lipase 33 U/L (13-60); Osmolality Calculated 290 mOsm/kg (285-295); Potassium 3.6 mmol/L (3.5-5.1); Sodium 139 mmol/L (136-145); Total Protein 7.9 g/dL (6.6-8.7)
[2025-02-04] MEDS: iohexol 350 mg/mL 500 mL Btl (per mL) IV (12:11)
--- NOTE | 2025-02-04 13:10 | DCPLANNER ---
faxed outpatient referral to [facility] [phone]. images pushed.
[2025-02-04 14:00] VITALS: BP 148/74; PULSE 73; O2SAT 93
== END 2025-02-04 14:00 | disposition home or self-care (01) ==
PROVIDERS: Emergency Provider Physician Assistant; PCP Family Medicine
DX: R10.31 Right lower quadrant pain (principal)
CPT/HCPCS: 36415; 74177; 80053; 81001; 83690; 85025; 87086; 99285